=== PATIENT | male | born 1955 | race Caucasian/White ===

== ENCOUNTER 2018-03-03 16:00 | Outpatient (RCR) | payer BC, SELFPAY | END 2018-03-03 17:10 | disposition home or self-care (01) | LOC: PT 16:00 | PROVIDERS: Visit Provider Orthopaedic Surgery | DX: Z96.652 Presence of left artificial knee joint (principal); M17.12 Unilateral primary osteoarthritis, left knee | CPT/HCPCS: 97110; 97112 ==

== ENCOUNTER 2023-02-11 16:28 | Inpatient (IN) | payer MEDICARE, SELFPAY ==
[2023-02-11] VITALS (7 sets, daily range): BP systolic 122–168; BP diastolic 68–113; PULSE 71–95; RESP 16–20; TEMP 36.4–36.8; O2SAT 92–97; BMI 29.6; BMI 28.9
--- NOTE | 2023-02-11 16:38 | CT_ITS ---
PROCEDURE INFORMATION: Exam: CT Abdomen And Pelvis With Contrast Exam date and time: 02/11/2023 5:30 PM Age: 67 years old Clinical indication: Abdominal pain; Generalized TECHNIQUE: Imaging protocol: Computed tomography of the abdomen and pelvis with contrast. Radiation optimization: All CT scans at this facility use at least one of these dose optimization techniques: automated exposure control; mA and/or kV adjustment per patient size (includes targeted exams where dose is matched to clinical indication); or iterative reconstruction. Contrast material: ISOVUE; Contrast volume: 75 ml; Contrast route: IV; REPORTING DATA: Count of CT and Cardiac NM exams in prior 12 months: This patient has received 0 known CTs and 0 known cardiac nuclear medicine studies in the 12 months prior to the current study. COMPARISON: No relevant prior studies available. FINDINGS: Heart: Aortic valve calcifications. Coronary arteries: Coronary artery calcifications. Liver: Low attenuation hepatic lesions measuring up to 7 mm in diameter are incompletely characterized, but are likely cysts. No followup imaging is recommended. Gallbladder and bile ducts: Normal. No calcified stones. No ductal dilation. Pancreas: Normal. No ductal dilation. Spleen: Normal. No splenomegaly. Adrenal glands: Normal. No mass. Kidneys and ureters: Low attenuation renal lesions measuring up to 11 mm in diameter are incompletely characterized, but are likely cysts. No followup imaging is warranted. Stomach and bowel: There are fluid-filled and dilated segments of small bowel in the abdomen and pelvis with surrounding edema and mesenteric free fluid. There is a transition point seen near midline on image 31 series 1001. The mesentery partially twists around this location. Small amount of free fluid in the pelvis likely related to bowel pathology. Severe sigmoid diverticulosis. Appendix: No evidence of appendicitis. Intraperitoneal space: Small amount of free fluid in the pelvis. Vasculature: The arteries demonstrate mild atherosclerotic disease. Lymph nodes: Unremarkable. No enlarged lymph nodes. Urinary bladder: Nonspecific urinary bladder wall thickening with mild surrounding edema. Reproductive: Moderate prostate enlargement. Bones/joints: Chronic pars defects of L5. No acute fracture. Soft tissues: Small fat containing right inguinal hernia. Other findings: Stigmata of old granulomatous disease. IMPRESSION: 1. There are fluid-filled and dilated segments of small bowel in the abdomen and pelvis with surrounding edema and mesenteric free fluid. There is a transition point seen near midline on image 31 series 1001. The mesentery partially twists around this location. This is most likely a high-grade bowel obstruction, possibly related to volvulus. Adhesions are also possible. Surgical evaluation is recommended. 2. Severe sigmoid diverticulosis. Free fluid surrounding the sigmoid colon limits the ability to exclude acute diverticulitis. 3. Nonspecific urinary bladder wall thickening with mild surrounding edema. Please exclude infection. 4. THIS REPORT CONTAINS FINDINGS THAT MAY BE CRITICAL TO PATIENT CARE. The findings were verbally communicated via telephone conference with ANTHONY SEBASTIAN at 7:39 PM EDT on 02/11/2023. The findings were acknowledged and understood. COMMENTS: Consistent with the [employer]'s Incidental Findings Committee white paper (J Am Haydee Radiol 2018): Any incidental renal lesion less than 1 cm or classified as too small to characterize, or any incidental cystic renal lesion characterized as simple-appearing, is likely benign. N
[2023-02-11 16:58] LABS: Microscopic, Urine URINE MICROSCOPIC (MICROSCOPIC)
[2023-02-11 17:05] LABS: Basophils % 0.3 % (0.1-2.0); Eosinophils % 0.4 % (0.1-12.0); Hematocrit 49.6 % (42.0-52.0); Hemoglobin 16.5 g/dL (14.1-18.0); Lymphocytes # 0.5 K/mm3 (0.7-4.5); Lymphocytes % 5.5 % (10-50); Mean Corpuscular HGB Conc 33.2 g/dL (31.8-35.4); Mean Corpuscular Hemoglobin 29.1 pg (27.0-31.2); Mean Corpuscular Volume 87.5 fl (80-94); Mean Platelet Volume 7.1 fl (7.4-10.4); Monocytes # 0.4 K/mm3 (0.1-1.0); Monocytes % 4.7 % (1.7-9.3); Neutrophils # 7.4 K/mm3 (1.8-7.8); Neutrophils % 89.2 % (37.0-80.0); Platelet Count 280 K/mm3 (142-424); Red Blood Count 5.67 M/mm3 (4.60-6.20); White Blood Count 8.3 K/mm3 (4.8-10.8)
[2023-02-11 17:14] LABS: MANUAL DIFFERENTIAL MANUAL DIFFERENTIAL (MANUAL DIFF)
[2023-02-11 17:16] LABS: Chloride 99 mmol/L (98-107); Potassium 3.8 mmoL/L (3.5-5.1); Sodium 135 mmol/L (136-145)
[2023-02-11 17:18] LABS: Alanine Aminotransferase 44 U/L (12-78); Alkaline Phosphatase 74 U/L (38-126); Aspartate Amino Transferase 40 U/L (17-59); Bilirubin,Total 0.7 mg/dl (0.2-1.3); Blood Urea Nitrogen 15 mg/dl (9-20); Creatinine Clearance Estimated 87 mL/min (50-200); Estimated Glomerular Filt Rate 84 ml/min (>60); GFR (African American) 101 ML/MIN (>60)
[2023-02-11 17:19] LABS: Albumin Level 5.1 g/dl (3.5-5.0); Albumin/Globulin Ratio 1.7 (1.1-1.8); Anion Gap 14.8 mEq/L (5-15); Calcium 9.5 mg/dl (8.4-10.2); Carbon Dioxide 25 mmol/L (22.0-30.0); Glucose 141 mg/dl (74-100); Lipase 48 U/L (23-300); Total Protein,Serum 8.1 g/dl (6.3-8.2)
[2023-02-11 17:20] LABS: Appearance,Urine CLEAR (Clear); Bilirubin,Urine Negative (Negative); Blood, Urine TRACE-I (Negative); Color,Urine YELLOW (Yellow); Glucose,Urine (UA) Negative (Negative); Ketones,Urine Negative (Negative); Leukocyte Esterase,Urine Negative (Negative); Nitrate,Urine Negative (Negative); Protein,Urine 2+ (Negative); Specific Gravity, Urine >= 1.030 (1.005-1.030); Urobilinogen,Urine 0.2 EU/dl (0.2)
[2023-02-11 17:32] LABS: Lymphocytes % 11 % (10-50); Monocytes % 5 % (2-9); Neutrophils % 84 % (42-76); Platelet Estimate Normal; RBC Morphology Normal; Total Cells Counted 100
[2023-02-11 17:35] LABS: RBC,Urine Occasional #/hpf (0-3); Squamous Epithelial Cell,Urine Occasional #/hpf (0-5); WBC,Urine Occasional #/hpf (0-3)
--- NOTE | 2023-02-11 17:36 | PC.NURSE ---
pt arrived back to room from ct
--- NOTE | 2023-02-11 17:38 | PC.NURSE ---
pt returned from radiology.
--- NOTE | 2023-02-11 17:38 | HMH.EDGENADL ---
Discharge Plan Disposition Chief Complaint: Abdominal Pain Prescriptions Prescriptions: No Action lisinopril-hydrochlorothiazide 20-12.5 mg Tablet 1 tab PO DAILY pravastatin 20 mg Tablet 20 mg PO DAILY Referrals Follow up/Referrals: Eleazar Templeton MD [Primary Care Provider] - See instructions Clinical Impressions Clinical Impression: Bowel obstruction Instructions Patient Instructions: DI for Acute Abdominal Pain Discharge ED Provider: Stephane Browning General Adult HPI General Chief complaint: Abdominal Pain Stated complaint: Stomach and abdominal pain Time Seen by Provider: 02/11/23 16:30 Mode of Arrival: Ambulatory Source of Information: Patient Limitations: No Limitations Description of Symptoms (Recalled from ER Triage Doc. by RN): Patient arrived POV to ED. Patient is having complaints of lower abdominal cramping that started this morning. He has been throwig up all day but states he has not had any diarrhea. His last BM was yesterday. States he is not having any difficulty or pain urinating. Patient states he is feeling bloated and has not been able to keep anything down. History of Present Illness HPI narrative: 67-year-old male presents with lower abdominal pain for 1 day. He says his bilateral lower abdomen nonradiating dull in nature. It is intermittent and coming and going. No flank pain no dysuria no hematuria. No nausea vomiting or diarrhea. No fever. He has not had pain like this before no history of abdominal surgeries. Related Data Home Medications Medication Instructions Recorded Confirmed lisinopril 20 1 tab PO DAILY Hypertension 02/11/23 02/11/23 mg-hydrochlorothiazide 12.5 mg tablet pravastatin 20 mg tablet 20 mg PO DAILY Cholesterol 02/11/23 02/11/23 Allergies Allergy/AdvReac Type Severity Reaction Status Date / Time No Known Allergies Allergy Verified 02/11/23 17:07 [facility] Disclaimer: The information contained in this section may have been updated after the patient was seen, as this information can be updated by other users. Social History Smoking Status: Never smoker alcohol intake: former current occupational status: other Travel in the last 8 weeks: Inside the [place] ROS Obtained: Yes All systems reviewed & no additional complaints except as documented Constitutional Constitutional: Denies fatigue Eyes Eyes: Denies dry eyes ENT Ears, Nose, Mouth, and Throat: Denies dizziness Cardiovascular Cardiovascular: Denies diaphoresis and Denies dyspnea Respiratory Respiratory: Denies dyspnea and Denies wheezing Gastrointestinal Gastrointestingal: Denies nausea Genitourinary Male Genitourinary: Denies flank pain Musculoskeletal Musculoskeletal: Denies joint swelling Integumentary/Breasts Skin/Breast: Denies rash Neurologic Neurologic: Denies dizziness Endocrine Endocrine: Denies fatigue Allergic/Immunologic Allergic/Immunologic: Denies urticaria and Denies wheezing Physical Exam General General appearance: alert and in no apparent distress Eye Eye exam: Present PERRL and EOMI ENT ENT exam: Present normal exam and normal oropharynx Neck Neck exam: Present normal inspection Chest Chest inspection: Present symmetric chest wall rise Respiratory Respiratory exam: Present normal lung sounds bilaterally; Absent respiratory distress Cardiovascular Cardiovascular exam: Present regular rate and normal rhythm Abdominal Exam Abdominal exam: Present soft and tenderness (Tenderness in bilateral lower abdomen); Absent distention, guarding, rebound, Gonzalez's sign or tenderness at McBurney's Point Rectal Exam Rectal exam: Present deferred Back Exam Back exam: Present normal inspection Neurological Exam Neurological exam: Present alert and oriented X3 Psychiatric Psychiatric exam: Present normal affect and normal mood Skin Skin exam: Present warm, dry and intact Lymphatic Lymphatic Findings: no adenopathy Medical Decision Making
--- NOTE | 2023-02-11 19:15 | PC.NURSE ---
Gave report to Shannon ARTEAGA
--- NOTE | 2023-02-11 19:39 | PC.NURSE ---
Dr. Altamirano [email or web address]
--- NOTE | 2023-02-11 20:02 | PC.NURSE ---
Pt assigned to room 200. Admissions notified at this time.
--- NOTE | 2023-02-11 20:06 | PC.NURSE ---
Hospitalist, Avis at [facility]
[2023-02-11 20:10] LABS: Coronavirus 19, PCR Not Detected (NotDetected); Influenza A, PCR Not Detected (NotDetected); Influenza B, PCR Not Detected (NotDetected)
--- NOTE | 2023-02-11 20:18 | EXP.HP ---
History of Present Illness *Admission Date: 02/11/23 *Reason for visit:: Abdominal Pain *History of present illness: This is a 67-year-old male with past medical history of hypertension and hyperlipidemia who presents emergency department today with complaints of Lower abdominal pain. He reports drinking his normal coffee this morning with no issues but then developed severe lower abdominal pain, crampy in nature. He reports trying to eat toast and developed nausea with 1 episode of emesis. He denies any further emesis since then but has had continued pain. He does endorse normal bowel movement yesterday but is seemingly constipated today. He denies fever, bright red blood per rectum, hematemesis, melena. Emergency department work-up significant for high-grade small bowel obstruction with mesenteric edema. No evidence of abscess noted. Laboratory evaluation unremarkable. Dr. Altamirano with surgery was consulted at time of admission and recommends n.p.o. with maintenance IV fluids bowel rest. He is admitted to the hospital service for further evaluation management [facility] Disclaimer: The information contained in this section may have been updated after the patient was seen, as this information can be updated by other users. Surgical History History of knee replacement Family History (Updated 02/11/23 @ 21:29 by Avis Soto RN) Family history of Alzheimer's disease Social History (Updated 02/11/23 @ 21:29 by Avis Soto RN) Smoking Status: Never smoker alcohol intake: former current occupational status: other Travel in the last 8 weeks: Inside the [place] Review of Systems Review of Systems Review of systems:: pertinent systems reviewed and negative unless documented below ENT Ears, Nose, Mouth, and Throat: Denies dizziness and Reports sinus pressure *Gastrointestinal Gastrointestinal: Reports change in stool character, Reports constipation and Reports nausea *Neurologic Neurologic: Denies dizziness Meds Home Medications and Allergies Home Medications Medication Instructions Recorded Confirmed Type lisinopril 20 1 tab PO DAILY Hypertension 02/11/23 02/12/23 History mg-hydrochlorothiazide 12.5 mg tablet pravastatin 20 mg tablet 20 mg PO DAILY Cholesterol 02/11/23 02/12/23 History New Prescriptions to Start Prescriptions: Allergies Allergy/AdvReac Type Severity Reaction Status Date / Time No Known Allergies Allergy Verified 02/11/23 17:07 Exam Data for Last 24 hours Vital signs and Labs for Last 24 Hours: Temp Pulse Resp BP Pulse Ox 98.0 F 92 H 20 139/95 H 95 02/11/23 16:29 02/11/23 18:30 02/11/23 16:29 02/11/23 18:30 02/11/23 18:30 Laboratory Results - last 24 hr 02/11/23 16:33: Urine Color Yellow, Urine Appearance Clear, Urine pH 6.0, Ur Specific [place] >= 1.030, Urine Protein 2+, Urine Glucose (UA) Negative, Urine Ketones Negative, Urine Blood Trace-i, Urine Nitrate Negative, Urine Bilirubin Negative, Urine Urobilinogen 0.2, Ur Leukocyte Esterase Negative, Urine RBC Occasional, Urine WBC Occasional, Ur Squamous Epith Cells Occasional, Urine Bacteria None 02/11/23 16:49: WBC 8.3, RBC 5.67, Hgb 16.5, Hct 49.6, MCV 87.5, MCH 29.1, MCHC 33.2, RDW 14.0, Plt Count 280, MPV 7.1 L, Neut % (Auto) 89.2 H, Lymph % (Auto) 5.5 L, [place] % (Auto) 4.7, Eos % (Auto) 0.4, Baso % (Auto) 0.3, Neut # (Auto) 7.4, Lymph # (Auto) 0.5 L, [place] # (Auto) 0.4, Eos # (Auto) 0.0, Baso # (Auto) 0.0, Total Counted 100, Neutrophils % (Manual) 84 H, Lymphocytes % (Manual) 11, Monocytes % (Manual) 5, Platelet Estimate Normal, RBC Morphology Normal 02/11/23 16:49: Sodium 135 L, Potassium 3.8, Chloride 99, Carbon Dioxide 25, Anion Gap 14.8, BUN 15, Creatinine 0.90, Estimated Creat Clear 87, Estimated GFR 84, Est GFR ( Amer) 101, Glucose 141 H, Calcium 9.5, Total Bilirubin 0.7, AST 40, ALT 44, Alkaline Phosphatase 74, Total Protein 8.
--- NOTE | 2023-02-11 20:18 | PC.NURSE ---
Attempted report. Floor nurse to call me back
--- NOTE | 2023-02-11 20:29 | PC.NURSE ---
Report to JENNI Albarran
[2023-02-12 04:00] VITALS: BP 155/84; PULSE 86; RESP 16; TEMP 36.9; O2SAT 96; BMI 28.8
--- NOTE | 2023-02-12 04:03 | PC.NURSE ---
NO ACUTE CHANGES SINCE PATIENT ARRIVED TO THE FLOOR. PT HAS RESTED INTERMITTENTLY. HAS C/O OF ABD PAIN X1 NAUSEA X2 AND HEARTBURN X1. VSS. LUNG SOUNDS CLEAR REMAINS ON ROOM AIR.
--- NOTE | 2023-02-12 06:10 | EXP.SURG.CON ---
History of Present Illness *Admission Date: 02/11/23 *Reason for visit:: Bowel obstruction *History of present illness: Patient is a 67-year-old male from [place], [place]. He has a prior history of hypertension hyperlipidemia. No history of any previous abdominal surgeries. He presented to the emergency department with complaints of lower abdominal pain. This was described as severe in intensity. Dull and crampy in nature. He had onset after eating breakfast. Initially he was having some upper respiratory congestion and had taken some DayQuil. He then developed at this abdominal pain. He did have associated emesis and had diminished appetite. Bowel movement was normal on 02/10/2023 and he had small hard stool bowel movement on 02/11/2023. No prior similar history. Evaluation in the emergency department included CT scan which revealed findings of fluid-filled dilated segments of small bowel in the abdomen and pelvis with some edema. There was noted to be a transition point. Radiologist description describes mesentery partially twists around this location. This is most likely a high-grade bowel obstruction, possibly related to volvulus. Adhesions are also possible. There is also findings of severe sigmoid diverticulosis. Surgery was contacted. Arrangements were made for inpatient admission to hospitalist service with surgical consultation. [facility] Disclaimer: The information contained in this section may have been updated after the patient was seen, as this information can be updated by other users. Surgical History History of knee replacement Family History (Updated 02/11/23 @ 21:29 by Avis Soto RN) Family history of Alzheimer's disease Social History (Updated 02/11/23 @ 21:29 by Avis Soto RN) Smoking Status: Never smoker alcohol intake: former current occupational status: other Travel in the last 8 weeks: Inside the [place] Review of Systems ENT Ears, Nose, Mouth, and Throat: Denies dizziness *Neurologic Neurologic: Denies dizziness Meds Home Medications and Allergies Home Medications Medication Instructions Recorded Confirmed Type lisinopril 20 1 tab PO DAILY Hypertension 02/11/23 02/11/23 History mg-hydrochlorothiazide 12.5 mg tablet pravastatin 20 mg tablet 20 mg PO DAILY Cholesterol 02/11/23 02/11/23 History New Prescriptions to Start Prescriptions: Allergies Allergy/AdvReac Type Severity Reaction Status Date / Time No Known Allergies Allergy Verified 02/11/23 17:07 Exam (Inpt) Vital signs and Labs for Last 24 Hours: Temp Pulse Resp BP Pulse Ox 98.5 F 86 16 155/84 H 96 02/12/23 04:00 02/12/23 04:00 02/12/23 04:00 02/12/23 04:00 02/12/23 04:00 Laboratory Results - last 24 hr 02/11/23 16:33: Urine Color Yellow, Urine Appearance Clear, Urine pH 6.0, Ur Specific [place] >= 1.030, Urine Protein 2+, Urine Glucose (UA) Negative, Urine Ketones Negative, Urine Blood Trace-i, Urine Nitrate Negative, Urine Bilirubin Negative, Urine Urobilinogen 0.2, Ur Leukocyte Esterase Negative, Urine RBC Occasional, Urine WBC Occasional, Ur Squamous Epith Cells Occasional, Urine Bacteria None 02/11/23 16:49: WBC 8.3, RBC 5.67, Hgb 16.5, Hct 49.6, MCV 87.5, MCH 29.1, MCHC 33.2, RDW 14.0, Plt Count 280, MPV 7.1 L, Neut % (Auto) 89.2 H, Lymph % (Auto) 5.5 L, [place] % (Auto) 4.7, Eos % (Auto) 0.4, Baso % (Auto) 0.3, Neut # (Auto) 7.4, Lymph # (Auto) 0.5 L, [place] # (Auto) 0.4, Eos # (Auto) 0.0, Baso # (Auto) 0.0, Total Counted 100, Neutrophils % (Manual) 84 H, Lymphocytes % (Manual) 11, Monocytes % (Manual) 5, Platelet Estimate Normal, RBC Morphology Normal 02/11/23 16:49: Sodium 135 L, Potassium 3.8, Chloride 99, Carbon Dioxide 25, Anion Gap 14.8, BUN 15, Creatinine 0.90, Estimated Creat Clear 87, Estimated GFR 84, Est GFR ( Amer) 101, Glucose 141 H, Calcium 9.5, Total Bilirubin 0.7, AST 40, ALT 44, Alkaline Phosph
[2023-02-12 07:13] VITALS: BP 124/74; PULSE 83; RESP 18; TEMP 36.9; O2SAT 100
[2023-02-12 07:13] LABS: Basophils % 0.4 % (0.1-2.0); Eosinophils % 0.1 % (0.1-12.0); Hematocrit 48.5 % (42.0-52.0); Hemoglobin 15.4 g/dL (14.1-18.0); Lymphocytes # 1.1 K/mm3 (0.7-4.5); Lymphocytes % 13.9 % (10-50); Mean Corpuscular HGB Conc 31.8 g/dL (31.8-35.4); Mean Corpuscular Hemoglobin 28.9 pg (27.0-31.2); Mean Corpuscular Volume 90.8 fl (80-94); Mean Platelet Volume 7.2 fl (7.4-10.4); Monocytes # 0.6 K/mm3 (0.1-1.0); Monocytes % 7.3 % (1.7-9.3); Neutrophils % 78.3 % (37.0-80.0); Platelet Count 264 K/mm3 (142-424); Red Blood Count 5.34 M/mm3 (4.60-6.20); White Blood Count 7.7 K/mm3 (4.8-10.8)
--- NOTE | 2023-02-12 07:19 | HMH.PHAINT1 ---
Pharmacy Intervention Comments: Reconciled patient's medication history using pharmacy fill records and patient interview.
[2023-02-12 07:27] LABS: Anion Gap 12.8 mEq/L (5-15); Blood Urea Nitrogen 15 mg/dl (9-20); Calcium 8.2 mg/dl (8.4-10.2); Carbon Dioxide 24 mmol/L (22.0-30.0); Chloride 100 mmol/L (98-107); Creatinine Clearance Estimated 85 mL/min (50-200); Estimated Glomerular Filt Rate 96 ml/min (>60); GFR (African American) 116 ML/MIN (>60); Glucose 119 mg/dl (74-100); Magnesium 2.2 mg/dl (1.6-2.3); Phosphorous 3.2 mg/dl (2.5-4.5); Potassium 3.8 mmoL/L (3.5-5.1); Sodium 133 mmol/L (136-145)
--- NOTE | 2023-02-12 07:56 | XR_ITS ---
FINAL REPORT CLINICAL HISTORY: ABDOMINAL PAIN, BOWEL OBSTRUCTION COMPARISON: 02/11/2023 FINDINGS: A PA view of the chest was obtained. The cardiac and mediastinal silhouettes are within normal limits. The lungs are clear. There is no free air beneath the diaphragm. Upright and supine views of the abdomen were obtained. NG tube tip is in the stomach. There are dilated small bowel loops, predominantly in the upper abdomen dilated up to 4.5 cm. Air-fluid levels are identified. The degree of dilatation in the small bowel loops is similar to prior. Contrast is seen in the urinary bladder. There are no pathologic calcifications. No acute osseous abnormalities identified. IMPRESSION: No acute intrathoracic or intraabdominal abnormality. No free air. Dilated small bowel loops consistent with known small bowel obstruction. Reviewed, Interpreted and Dictated by Diana Hope MD Transcribed by Nisa Mishra Authenticated and [facility] [place]
[2023-02-12 10:47] VITALS: BP 120/83; PULSE 87; RESP 17; TEMP 36.5; O2SAT 95
[2023-02-12 12:42] VITALS: BMI 28.8
--- NOTE | 2023-02-12 14:07 | EXP.ACUTE.PN ---
Subjective *Date: 02/12/23 *Time: 14:07 Interval history: No further nausea or vomiting overnight. NG placed this morning. Tolerating well with approximately 600 cc of output. Denies chest pain, confusion, shortness of breath. No bowel movements or flatus. Stable on room air. Medical Exam Vital signs and Labs for Last 24 Hours: Vital Signs Temp Pulse Pulse Resp BP BP Pulse Ox 02/12/23 10:47 97.7 F 87 17 120/83 95 02/12/23 07:13 98.5 F 83 18 124/74 100 02/12/23 04:00 98.5 F 86 16 155/84 H 96 02/11/23 20:16 97.6 F 93 H 20 142/98 H 96 02/11/23 20:30 98.3 F 71 16 122/68 02/11/23 18:30 92 H 139/95 H 95 02/11/23 18:00 90 148/98 H 92 L 02/11/23 17:40 86 168/113 H 93 L 02/11/23 17:00 91 H 152/101 H 95 02/11/23 16:29 98.0 F 95 H 20 153/100 H 95 Intake and Output 02/11/23 02/12/23 02/12/23 23:59 07:59 15:59 Intake Total 1000 / 1000 0 / 0 Output Total 0 / 0 0 / 0 Balance 1000 / 1000 0 / 0 0 / 0 Intake: Intake, Oral Amount 0 / 0 Intake, Total IV Amount 1000 / 1000 Output: Output, Urine Amount 0 / 0 0 / 0 Other: Number of Unmeasured Voids 1 1 Weight 86.591 kg 86.228 kg 86.2 kg Patient Weight 02/12/23 23:59 Weight 86.2 kg Laboratory Results - last 24 hr 02/11/23 16:33: Urine Color Yellow, Urine Appearance Clear, Urine pH 6.0, Ur Specific [place] >= 1.030, Urine Protein 2+, Urine Glucose (UA) Negative, Urine Ketones Negative, Urine Blood Trace-i, Urine Nitrate Negative, Urine Bilirubin Negative, Urine Urobilinogen 0.2, Ur Leukocyte Esterase Negative, Urine RBC Occasional, Urine WBC Occasional, Ur Squamous Epith Cells Occasional, Urine Bacteria None 02/11/23 16:49: WBC 8.3, RBC 5.67, Hgb 16.5, Hct 49.6, MCV 87.5, MCH 29.1, MCHC 33.2, RDW 14.0, Plt Count 280, MPV 7.1 L, Neut % (Auto) 89.2 H, Lymph % (Auto) 5.5 L, [place] % (Auto) 4.7, Eos % (Auto) 0.4, Baso % (Auto) 0.3, Neut # (Auto) 7.4, Lymph # (Auto) 0.5 L, [place] # (Auto) 0.4, Eos # (Auto) 0.0, Baso # (Auto) 0.0, Total Counted 100, Neutrophils % (Manual) 84 H, Lymphocytes % (Manual) 11, Monocytes % (Manual) 5, Platelet Estimate Normal, RBC Morphology Normal 02/11/23 16:49: Sodium 135 L, Potassium 3.8, Chloride 99, Carbon Dioxide 25, Anion Gap 14.8, BUN 15, Creatinine 0.90, Estimated Creat Clear 87, Estimated GFR 84, Est GFR ( Amer) 101, Glucose 141 H, Calcium 9.5, Total Bilirubin 0.7, AST 40, ALT 44, Alkaline Phosphatase 74, Total Protein 8.1, Albumin 5.1 H, Globulin 3.0, Albumin/Globulin Ratio 1.7, Lipase 48 02/11/23 20:03: SARS-CoV-2 (PCR) Not detected, Influenza A Untype (PCR) Not detected, Influenza Type B (PCR) Not detected 02/12/23 06:55: WBC 7.7, RBC 5.34, Hgb 15.4, Hct 48.5, MCV 90.8, MCH 28.9, MCHC 31.8, RDW 14.0, Plt Count 264, MPV 7.2 L, Neut % (Auto) 78.3, Lymph % (Auto) 13.9, [place] % (Auto) 7.3, Eos % (Auto) 0.1, Baso % (Auto) 0.4, Neut # (Auto) 6.0, Lymph # (Auto) 1.1, [place] # (Auto) 0.6, Eos # (Auto) 0.0, Baso # (Auto) 0.0 02/12/23 06:55: Sodium 133 L, Potassium 3.8, Chloride 100, Carbon Dioxide 24, Anion Gap 12.8, BUN 15, Creatinine 0.80, Estimated Creat Clear 85, Estimated GFR 96, Est GFR ( Amer) 116, Glucose 119 H, Calcium 8.2 L, Phosphorus 3.2, Magnesium 2.2 I & O for Labs for Last 24 Hours: Intake & Output 02/09/23 02/10/23 02/11/23 02/12/23 23:59 23:59 23:59 23:59 Intake Total 1000 / 1000 0 / 0 Output Total 0 / 0 Balance 1000 / 1000 0 / 0 Weight 86.591 kg 86.2 kg Constitutional: Present no acute distress Head: Present atraumatic and normocephalic ENT: Present normal exam Comment:: NG in right nare Neck: Present normal inspection Respiratory: Present normal respiratory effort; Absent accessory muscle use, rhonchi, wheezes or crackles Cardiac: Present Reg Rate and Rhythm GI: Present soft, tenderness (worse in left abdomen, hypoactive bowel sounds) and normal bowel sounds; Absent distention Extremities: Present normal inspection and full R
[2023-02-12 14:51] VITALS: BP 129/76; PULSE 86; RESP 18; TEMP 37.3; O2SAT 94
--- NOTE | 2023-02-12 16:55 | PC.NURSE ---
Pt is resting in bed. NG 16 fr to (R) nare @ 67 cm continuous low wall suction. Has had 600 ml of brown bile. Pt has c/o abd discomfort and nausea this shift. Medicated per jan. Pt voids per urinal. VSS at this time. Call light within reach.
[2023-02-12 20:00] VITALS: BP 133/91; PULSE 90; RESP 16; TEMP 36.9; O2SAT 93
[2023-02-13] VITALS (21 sets, daily range): BP systolic 119–151; BP diastolic 66–94; PULSE 87–125; RESP 16–20; TEMP 36.3–43; O2SAT 90–96; BMI 28.6
--- NOTE | 2023-02-13 00:44 | XR_ITS ---
PROCEDURE INFORMATION: Exam: XR Abdomen Exam date and time: 02/13/2023 2:18 AM Age: 67 years old Clinical indication: Abdominal pain TECHNIQUE: Imaging protocol: Radiologic exam of the abdomen. Views: Frontal supine view of the abdomen. 1 View. COMPARISON: CR XR ACUTE ABDOMEN SERIES 02/12/2023 8:40 AM FINDINGS: Gastrointestinal tract: Normal. No bowel dilation. Bones/joints: Unremarkable. IMPRESSION: No acute findings.
--- NOTE | 2023-02-13 03:38 | XR_ITS ---
PROCEDURE INFORMATION: Exam: XR Abdomen Exam date and time: 02/13/2023 3:52 AM Age: 67 years old Clinical indication: Device placement; Gi device; Nasogastric tube; Additional info: Ngt placement TECHNIQUE: Imaging protocol: Radiologic exam of the abdomen. Views: Frontal supine view of the abdomen. 1 View. COMPARISON: CR XR KUB 02/13/2023 2:18 AM FINDINGS: Tubes, catheters and devices: Nasogastric tube overlies the stomach. Gastrointestinal tract: Normal. No bowel dilation. Bones/joints: Unremarkable. IMPRESSION: NG tube in stomach.
--- NOTE | 2023-02-13 05:39 | EXP.EVENT.NO ---
0218 JENNI Cook reported patient abdomen distended, complained of significant abdominal pain, NGT with no output. NGT replaced and KUB ordered for confirmation, NGT with improved output, patient pain improved.
--- NOTE | 2023-02-13 06:00 | FL_ITS ---
FINAL REPORT CLINICAL HISTORY: bowel obstruction FINDINGS: SMALL BOWEL FOLLOW THROUGH HISTORY: Acute abdominal pain. Abnormal CT scan with bowel obstruction. PROCEDURE: Gastrografin contrast was gently injected to the patient's existing nasogastric tube. Serial radiographs were obtained. FINDINGS: Preliminary beverage distiller film demonstrates nasogastric tube to terminate in the stomach. On the two-hour radiograph, there is contrast identified in dilated loops of small bowel but no contrast in the colon. At this time, the examination was terminated as the patient was taken to the operating room. IMPRESSION: Dilated loops of small bowel most consistent with high-grade bowel obstruction. Films reviewed , interpreted and dictated by Dr. Diana Hope. Transcribed by Raj Oh PA-C. Reviewed, Interpreted and Dictated by Diana Hope MD Transcribed by TERE Hutchinson Authenticated and [facility]
--- NOTE | 2023-02-13 07:08 | EXP.SURG.PN ---
Subjective Narrative: Patient had significant acute exasperation of pain earlier this morning requiring morphine. He did pass some gas but no bowel movement. Exam Data for Last 24 hours Vital signs and Labs for Last 24 Hours: Temp Pulse Resp BP Pulse Ox 98.5 F 96 H 20 142/66 H 94 L 02/13/23 04:00 02/13/23 04:00 02/13/23 04:00 02/13/23 04:00 02/13/23 04:00 Laboratory Results - last 24 hr 02/12/23 06:55: WBC 7.7, RBC 5.34, Hgb 15.4, Hct 48.5, MCV 90.8, MCH 28.9, MCHC 31.8, RDW 14.0, Plt Count 264, MPV 7.2 L, Neut % (Auto) 78.3, Lymph % (Auto) 13.9, [place] % (Auto) 7.3, Eos % (Auto) 0.1, Baso % (Auto) 0.4, Neut # (Auto) 6.0, Lymph # (Auto) 1.1, [place] # (Auto) 0.6, Eos # (Auto) 0.0, Baso # (Auto) 0.0 02/12/23 06:55: Sodium 133 L, Potassium 3.8, Chloride 100, Carbon Dioxide 24, Anion Gap 12.8, BUN 15, Creatinine 0.80, Estimated Creat Clear 85, Estimated GFR 96, Est GFR ( Amer) 116, Glucose 119 H, Calcium 8.2 L, Phosphorus 3.2, Magnesium 2.2 I & O for Last 24 hours: Intake & Output 02/10/23 02/11/23 02/12/23 02/13/23 11:59 11:59 11:59 11:59 Intake Total 1000 / 1000 1755 / 1755 Output Total 0 / 0 1011 / 1011 Balance 1000 / 1000 744 / 744 Weight 190 lb 1.6 oz 189 lb 3.2 oz *Routine Abdominal Exam Comments: Slightly distended. Progress Note: A&P Assessment and plan (1) Bowel obstruction: Status: Acute Assessment and plan: I will review his x-rays. Patient may very well require laparotomy. (2) Hypertension: Status: Acute (3) Hyperlipidemia: Status: Acute
--- NOTE | 2023-02-13 07:14 | PC.NURSE ---
Pt started c/o nausea and pain in middle of night stating it was the worse pain he had had. Very small amount of drainage noted in canister. Tube was pulled and new tube inserted. KUB showed it was in stomach. Small amount of clear fluid noted when hooked to suction. Pt has not voiced any c/o since reinserting tube.
[2023-02-13 07:32] LABS: Basophils % 0.4 % (0.1-2.0); Eosinophils % 0.1 % (0.1-12.0); Hematocrit 48.4 % (42.0-52.0); Hemoglobin 15.4 g/dL (14.1-18.0); Lymphocytes # 1.1 K/mm3 (0.7-4.5); Lymphocytes % 16.7 % (10-50); Mean Corpuscular HGB Conc 31.9 g/dL (31.8-35.4); Mean Corpuscular Volume 90.8 fl (80-94); Mean Platelet Volume 7.3 fl (7.4-10.4); Monocytes # 0.5 K/mm3 (0.1-1.0); Monocytes % 7.4 % (1.7-9.3); Neutrophils # 4.7 K/mm3 (1.8-7.8); Neutrophils % 75.3 % (37.0-80.0); Platelet Count 263 K/mm3 (142-424); Red Blood Count 5.33 M/mm3 (4.60-6.20); Red Cell Distribution Width 13.8 % (11.5-17.5); White Blood Count 6.3 K/mm3 (4.8-10.8)
[2023-02-13 07:42] LABS: Alanine Aminotransferase 26 U/L (12-78); Albumin/Globulin Ratio 1.7 (1.1-1.8); Alkaline Phosphatase 57 U/L (38-126); Anion Gap 11.6 mEq/L (5-15); Aspartate Amino Transferase 28 U/L (17-59); Bilirubin,Total 0.6 mg/dl (0.2-1.3); Blood Urea Nitrogen 17 mg/dl (9-20); Calcium 7.9 mg/dl (8.4-10.2); Carbon Dioxide 25 mmol/L (22.0-30.0); Chloride 102 mmol/L (98-107); Creatinine Clearance Estimated 85 mL/min (50-200); Estimated Glomerular Filt Rate 96 ml/min (>60); GFR (African American) 116 ML/MIN (>60); Globulin 2.4 g/dL (1.3-3.2); Glucose 111 mg/dl (74-100); Magnesium 2.3 mg/dl (1.6-2.3); Potassium 3.6 mmoL/L (3.5-5.1); Sodium 135 mmol/L (136-145); Total Protein,Serum 6.4 g/dl (6.3-8.2)
--- NOTE | 2023-02-13 10:47 | EXP.SURG.PN ---
Subjective Narrative: When patient was administered contrast for small bowel follow-through he had quite severe pain with distention. Describes this pain as 10 out of 10. Exam Data for Last 24 hours Vital signs and Labs for Last 24 Hours: Temp Pulse Resp BP Pulse Ox 98.6 F 91 H 16 149/83 H 95 02/13/23 08:00 02/13/23 08:00 02/13/23 08:00 02/13/23 08:00 02/13/23 08:00 Laboratory Results - last 24 hr 02/13/23 07:08: WBC 6.3, RBC 5.33, Hgb 15.4, Hct 48.4, MCV 90.8, MCH 29.0, MCHC 31.9, RDW 13.8, Plt Count 263, MPV 7.3 L, Neut % (Auto) 75.3, Lymph % (Auto) 16.7, [place] % (Auto) 7.4, Eos % (Auto) 0.1, Baso % (Auto) 0.4, Neut # (Auto) 4.7, Lymph # (Auto) 1.1, [place] # (Auto) 0.5, Eos # (Auto) 0.0, Baso # (Auto) 0.0 02/13/23 07:08: Sodium 135 L, Potassium 3.6, Chloride 102, Carbon Dioxide 25, Anion Gap 11.6, BUN 17, Creatinine 0.80, Estimated Creat Clear 85, Estimated GFR 96, Est GFR ( Amer) 116, Glucose 111 H, Calcium 7.9 L, Magnesium 2.3, Total Bilirubin 0.6, AST 28 D, ALT 26 D, Alkaline Phosphatase 57, Total Protein 6.4, Albumin 4.0, Globulin 2.4, Albumin/Globulin Ratio 1.7 I & O for Last 24 hours: Intake & Output 02/10/23 02/11/23 02/12/23 02/13/23 11:59 11:59 11:59 11:59 Intake Total 1000 / 1000 2795 / 2795 Output Total 0 / 0 1011 / 1011 Balance 1000 / 1000 1784 / 1784 Weight 190 lb 1.6 oz 189 lb 3.2 oz *Routine Abdominal Exam Comments: Abdomen is distended and tender Progress Note: A&P Assessment and plan (1) Bowel obstruction: Status: Acute Assessment and plan: Given the fact that the patient clinically has failed small bowel follow-through with onset of severe pain and distention with administration of contrast likely has high-grade partial versus complete obstruction. Plan will be for operative intervention. (2) Hypertension: Status: Acute (3) Hyperlipidemia: Status: Acute
--- NOTE | 2023-02-13 12:01 | P.PN_ITS ---
[facility] Disclaimer: The information contained in this section may have been updated after the patient was seen, as this information can be updated by other users. Surgical History History of knee replacement Family History (Updated 02/11/23 @ 21:29 by Avis Soto RN) Other Family history of Alzheimer's disease Social History (Updated 02/11/23 @ 21:29 by Avis Soto RN) Smoking Status: Never smoker alcohol intake: former substance use type: denies use current occupational status: other Travel in the last 8 weeks: Inside the [facility] Anesthesia Checklist Patient Identification Patient Identification: Arm Band Structural Data Admitted From: Home Planned Operative Procedure/s: Exploratory Laparotomy Consent for Planned Operative Procedure(s) Verified: Yes Verified Documents: Surgical Consent and History and Physical NPO Status Verified Time NPO: 00:00 Additional verifications Anesthesia Reactions: No Airway Assessment C-Spine Mobility Assessed: Yes TMJ Mobility Assessed: Yes Dentition: Good Dentition Neurological Assessment Level of Consciousness: Awake and Alert Anesthesia Plan Anesthesia Risk discussed: Yes Anesthesia Plan: Verified ASA Class: II Anesthesia Type: General
--- NOTE | 2023-02-13 12:14 | EXP.ACUTE.PN ---
Subjective *Date: 02/13/23 *Time: 12:14 Interval history: Nausea and worsening abdominal pain on morning exam. Sitting at bedside. NG in place. Awaiting third image for small bowel follow-through. First to show contrast in the stomach and then into small intestines. Patient is afebrile. Given increased abdominal pain, discussed case with surgery, likely going to OR today. No bowel movements or gas this morning. Medical Exam Vital signs and Labs for Last 24 Hours: Vital Signs Temp Pulse Resp BP Pulse Ox 02/13/23 08:00 98.6 F 91 H 16 149/83 H 95 02/13/23 04:00 98.5 F 96 H 20 142/66 H 94 L 02/12/23 20:00 98.5 F 90 16 133/91 H 93 L 02/12/23 14:51 99.2 F 86 18 129/76 94 L Intake and Output 02/12/23 02/13/23 02/13/23 23:59 07:59 15:59 Intake Total 1755 / 1755 1040 / 1040 0 / 1040 Output Total 901 / 901 110 / 110 Balance 854 / 854 930 / 930 0 / 930 Intake: Intake, Oral Amount 0 / 0 Intake, Total IV Amount 1755 / 1755 1040 / 1040 0.9 % Sodium Chloride 1000ML 1, 1755 / 1755 1040 / 1040 000 ml @ 100 mls/hr IV .Q10H [facility] Rx#:[id number] Output: Output, Urine Amount / 110 / 110 Output, Gastric Drainage Amount 900 / 900 Right Nare 900 / 900 Other: Number of Unmeasured Voids 0 Weight 85.82 kg Patient Weight 02/13/23 23:59 Weight 85.82 kg Laboratory Results - last 24 hr 02/13/23 07:08: WBC 6.3, RBC 5.33, Hgb 15.4, Hct 48.4, MCV 90.8, MCH 29.0, MCHC 31.9, RDW 13.8, Plt Count 263, MPV 7.3 L, Neut % (Auto) 75.3, Lymph % (Auto) 16.7, [place] % (Auto) 7.4, Eos % (Auto) 0.1, Baso % (Auto) 0.4, Neut # (Auto) 4.7, Lymph # (Auto) 1.1, [place] # (Auto) 0.5, Eos # (Auto) 0.0, Baso # (Auto) 0.0 02/13/23 07:08: Sodium 135 L, Potassium 3.6, Chloride 102, Carbon Dioxide 25, Anion Gap 11.6, BUN 17, Creatinine 0.80, Estimated Creat Clear 85, Estimated GFR 96, Est GFR ( Amer) 116, Glucose 111 H, Calcium 7.9 L, Magnesium 2.3, Total Bilirubin 0.6, AST 28 D, ALT 26 D, Alkaline Phosphatase 57, Total Protein 6.4, Albumin 4.0, Globulin 2.4, Albumin/Globulin Ratio 1.7 I & O for Labs for Last 24 Hours: Intake & Output 02/10/23 02/11/23 02/12/23 02/13/23 23:59 23:59 23:59 23:59 Intake Total 1000 / 1000 1755 / 1755 1040 / 1040 Output Total 901 / 901 110 / 110 Balance 1000 / 1000 854 / 854 930 / 930 Weight 86.591 kg 86.2 kg 85.82 kg Constitutional: Present mild distress Head: Present atraumatic and normocephalic ENT: Present normal exam Comment:: NG in right nare Neck: Present normal inspection Respiratory: Present normal respiratory effort; Absent accessory muscle use, rhonchi, wheezes or crackles Cardiac: Present Reg Rate and Rhythm GI: Present soft and tenderness (Diffuse abdomen pain, absent bowel sounds); Absent distention or normal bowel sounds Extremities: Present normal inspection and full ROM Skin: Present intact; Absent erythema Neuro: Present Cranial Nerve 2-12 Intact, Grossly Intact, alert, awake, oriented x 3 and moves all extremities Assessment and Plan *Assessment and plan (1) Bowel obstruction: Status: Acute Category: Medical Code(s): K56.609 - Unspecified intestinal obstruction, unspecified as to partial versus complete obstruction (2) Hypertension: Status: Acute Category: Medical Code(s): I10 - Essential (primary) hypertension (3) Hyperlipidemia: Status: Acute Category: Medical Code(s): E78.5 - Hyperlipidemia, unspecified Plan 67-year-old male with bowel obstruction. Admitted to medicine for further management. NG placed this morning. Improved discomfort. Surgery consulted, appreciate their recommendations. Problems addressed as follows: SBO Surgery consulted, appreciate their recommendations. Discussed case with surgeon, given worsening pain, going to the OR today. Continue with NG. Further management pending findings in the OR. Continue to hold on antibiotics N
--- NOTE | 2023-02-13 13:39 | P.OP_ITS ---
Date of procedure: 02/13/23 Pre-op Diagnosis:: Small bowel obstruction Post-op Diagnosis:: Same Procedure performed:: Exploratory laparotomy with freeing of intestinal obstruction Surgeon:: Eleazar Altamirano MD GENERAL OFFICE ASSOCIATE:: Petey Galarza Anesthesia: GETA Estimated blood loss (mL): 50 Operative findings:: Patient had findings of complete distal small bowel obstruction likely secondary to twisting of the small bowel. Small bowel was completely decompressed distally and markedly distended and very tense and edematous proximally. It was somewhat hemorrhagic appearing due to its distention. However, it appeared viable. Operative note:: Patient was taken to the operating room. He was given preoperative intravenous antibiotics. In the operating room he was placed in a supine position. General anesthesia was induced via endotracheal tube. Sanderson catheter was placed. Abdomen was prepped and draped in the standard surgical fashion. Midline incision was made. Careful dissection was carried down through subcutaneous t issues and fascia. Peritoneum was carefully entered. There was a moderately large amount of reactive fluid which was suctioned free from the abdomen. Exposure was achieved. The bowel was extremely distended and tense with some hemorrhagic reaction to the serosa. Exposure was achieved by extending the incision superiorly. The small bowel was eviscerated and inspected. Distal small bowel was completely decompressed and there was noted to be marking on the serosa from complete small bowel obstruction. This was likely secondary to possible twisting of the bowel without definite adhesive band. There was no mass noted. Patient did have a moderate right inguinal hernia but this did not appear to be the etiology for the obstruction. Bowel was run in its entirety from the ileocecal valve retrograde to the ligament of Treitz. As stated above, much of the small intestine was markedly distended with some hemorrhagic reaction but viable. Nasogastric tube was palpated and positioned in a good position in the distal gastric lumen. Enteric contents were then returned to normal anatomic position. Peritoneal cavity was thoroughly irrigated with copious amounts saline and aspirated until clear. Fascia was closed with running 0 looped PDS x2. Skin was closed with geena. Clean dry sterile dressing was applied. Condition: stable Disposition: PACU Complications:: None immediately apparent
--- NOTE | 2023-02-13 13:49 | EXP.ANES.I ---
[facility] Anesthesia Record Part I Anesthesia Record I Intake, IV Amount: 1,800 Estimated blood loss (mL): 50 Urine output (mL): 150 Blood Products used (#): none Blood Pressure: 125/77 SaO2: 92 Pulse Rate: 94 Respiratory Rate: 16 Temperature: 97.7 F Patient is:: Drowsy and Stable Stable to PACU at:: 13:45
[2023-02-13 14:31] LABS: Microscopic,Cath URINE MICROSCOPIC (MICROSCOPIC)
--- NOTE | 2023-02-13 17:19 | PC.NURSE ---
Pt is alert and oriented x4. He is s/p exploratory laparotomy with freeing of intestinal obstruction. He has a midline incision covered w/telfa and tegaderm. Small amount of bloody drainage noted. His NG is to lws with approx 200mls of sanders drainage noted. He remains on RA. His mazariegos is to bedside draining straw colored urine. He has used 1ml of morphine per COMMUNICATION SPEC as of the time of this note. He is currently resting in bed with his eyes closed. Bed is locked and in the lowest position, call light is within reach.
--- NOTE | 2023-02-13 17:39 | PC.NURSE ---
All documentation and care by Bart Logan has been done under my direct supervision.
[2023-02-13 18:17] LABS: Blood Urea Nitrogen 18 mg/dl (9-20); Calcium 7.5 mg/dl (8.4-10.2); Carbon Dioxide 26 mmol/L (22.0-30.0); Creatinine Clearance Estimated 85 mL/min (50-200); Estimated Glomerular Filt Rate 84 ml/min (>60); GFR (African American) 101 ML/MIN (>60); Glucose 124 mg/dl (74-100); Potassium 3.8 mmoL/L (3.5-5.1); Sodium 138 mmol/L (136-145)
[2023-02-13 18:22] LABS: Anion Gap 11.8 mEq/L (5-15); Chloride 104 mmol/L (98-107)
[2023-02-13 20:29] LABS: Appearance,Urine/Cath CLEAR (Clear); Bilirubin,Cath Negative (Negative); Blood, Urine/Cath Negative (Negative); Color,Urine/Cath YELLOW (Yellow); Glucose,Urine/Cath (UA) Negative (Negative); Ketones,Urine/Cath 2+ (Negative); Leukocyte Esterase,Cath Negative (Negative); Nitrate,Cath Negative (Negative); PH,Urine/Cath 5.5 (5.0-8.5); Protein,Urine/Cath 2+ (Negative); Specific Gravity, Urine/Cath >= 1.030 (1.005-1.030); Urobilinogen,Cath 0.2 EU/dl (0.2)
[2023-02-13 20:42] LABS: Hyaline Casts,Urine/Cath OCC #/lpf (0); Squamous Epithelial Ur./Cath Occasional #/hpf (0-5)
[2023-02-14] VITALS (16 sets, daily range): BP systolic 115–141; BP diastolic 70–93; PULSE 87–121; RESP 17–18; TEMP 36.4–37.7; O2SAT 90–92; BMI 29.7
--- NOTE | 2023-02-14 05:02 | PC.NURSE ---
pt. A&OX4. PATIENT COORDINATOR FRONT DESK pump for pain management, used 17 mg this shift. reporting pain between 6-8. serosanguineous drainage noted on midline incisional dressing at start of shift, has not spread, pt states he has not passed any gas, bowel sounds present. Sanderson catheter in place. call light in reach.
[2023-02-14 06:54] LABS: Lymphocytes # 0.7 K/mm3 (0.7-4.5); Monocytes # 0.5 K/mm3 (0.1-1.0)
[2023-02-14 07:03] LABS: Basophils % 0.4 % (0.1-2.0); Eosinophils % 0.1 % (0.1-12.0); Hematocrit 40.8 % (42.0-52.0); Mean Corpuscular HGB Conc 32.9 g/dL (31.8-35.4); Mean Corpuscular Hemoglobin 30.2 pg (27.0-31.2); Mean Platelet Volume 7.3 fl (7.4-10.4); Neutrophils # 3.6 K/mm3 (1.8-7.8); Neutrophils % 74.4 % (37.0-80.0); Platelet Count 285 K/mm3 (142-424); Red Blood Count 4.44 M/mm3 (4.60-6.20); White Blood Count 4.8 K/mm3 (4.8-10.8)
[2023-02-14 07:04] LABS: Chloride 108 mmol/L (98-107)
[2023-02-14 07:05] LABS: Potassium 3.4 mmoL/L (3.5-5.1); Sodium 138 mmol/L (136-145)
--- NOTE | 2023-02-14 07:06 | P.PNANES_ITS ---
[facility] Anesthesia Record Part II Anesthesia Record Part II Discharge Time: 14:25 Destination: Medical Surgical Department PACU nurse assessment reviewed?: Yes Patient Condition:: Good Anesthesia Complications:: None Swallowing reflex intact?: Yes Cyanosis?: No Blood Pressure: 131/80 Pulse Rate: 100 Temperature: 97.7 F Mental Status: Alert & Oriented Pain level:: 5 Nausea and/or vomitting:: None Intake, IV Amount: 0
[2023-02-14 07:07] LABS: Alanine Aminotransferase 18 U/L (12-78); Albumin/Globulin Ratio 1.3 (1.1-1.8); Alkaline Phosphatase 42 U/L (38-126); Anion Gap 8.4 mEq/L (5-15); Aspartate Amino Transferase 24 U/L (17-59); Bilirubin,Total 0.5 mg/dl (0.2-1.3); Blood Urea Nitrogen 17 mg/dl (9-20); Carbon Dioxide 25 mmol/L (22.0-30.0); Creatinine Clearance Estimated 88 mL/min (50-200); Estimated Glomerular Filt Rate 74 ml/min (>60); GFR (African American) 90 ML/MIN (>60); Globulin 2.3 g/dL (1.3-3.2); Glucose 115 mg/dl (74-100); Hemoglobin 13.4 g/dL (14.1-18.0); Total Protein,Serum 5.3 g/dl (6.3-8.2)
--- NOTE | 2023-02-14 07:07 | P.PN_ITS ---
Subjective Narrative: Patient actually states that he feels somewhat better. Some soreness when coughing or hiccuping. Exam Data for Last 24 hours Vital signs and Labs for Last 24 Hours: Temp Pulse Resp BP Pulse Ox 98.6 F 103 H 18 117/71 90 L 02/14/23 06:00 02/14/23 06:00 02/14/23 06:00 02/14/23 06:00 02/14/23 06:00 Laboratory Results - last 24 hr 02/13/23 07:08: WBC 6.3, RBC 5.33, Hgb 15.4, Hct 48.4, MCV 90.8, MCH 29.0, MCHC 31.9, RDW 13.8, Plt Count 263, MPV 7.3 L, Neut % (Auto) 75.3, Lymph % (Auto) 16.7, [place] % (Auto) 7.4, Eos % (Auto) 0.1, Baso % (Auto) 0.4, Neut # (Auto) 4.7, Lymph # (Auto) 1.1, [place] # (Auto) 0.5, Eos # (Auto) 0.0, Baso # (Auto) 0.0 02/13/23 07:08: Sodium 135 L, Potassium 3.6, Chloride 102, Carbon Dioxide 25, Anion Gap 11.6, BUN 17, Creatinine 0.80, Estimated Creat Clear 85, Estimated GFR 96, Est GFR ( Amer) 116, Glucose 111 H, Calcium 7.9 L, Magnesium 2.3, Total Bilirubin 0.6, AST 28 D, ALT 26 D, Alkaline Phosphatase 57, Total Protein 6.4, Albumin 4.0, Globulin 2.4, Albumin/Globulin Ratio 1.7 02/13/23 12:15: Urine Color Yellow, Urine Appearance Clear, Urine pH 5.5, Ur Specific [place] >= 1.030, Urine Protein 2+, Urine Glucose (UA) Negative, Urine Ketones 2+, Urine Blood Negative, Urine Nitrate Negative, Urine Bilirubin Negative, Urine Urobilinogen 0.2, Ur Leukocyte Esterase Negative, Urine RBC None, Urine WBC None, Ur Squamous Epith Cells Occasional, Urine Bacteria None, Hyaline Casts Occ 02/13/23 17:50: Sodium 138, Potassium 3.8, Chloride 104, Carbon Dioxide 26, Anion Gap 11.8, BUN 18, Creatinine 0.90, Estimated Creat Clear 85, Estimated GFR 84, Est GFR ( Amer) 101, Glucose 124 H, Calcium 7.5 L 02/14/23 06:30: Sodium 138, Potassium 3.4 L, Chloride 108 H 02/14/23 06:30: WBC 4.8, RBC 4.44 L, Hgb 13.4 L D, Hct 40.8 L, MCV 92.0, MCH 30.2, MCHC 32.9, RDW 14.0, Plt Count 285, MPV 7.3 L, Neut % (Auto) 74.4, Lymph % (Auto) 15.0, [place] % (Auto) 10.0 H, Eos % (Auto) 0.1, Baso % (Auto) 0.4, Neut # (Auto) 3.6, Lymph # (Auto) 0.7, [place] # (Auto) 0.5, Eos # (Auto) 0.0, Baso # (Auto) 0.0 I & O for Last 24 hours: Intake & Output 02/11/23 02/12/23 02/13/23 02/14/23 11:59 11:59 11:59 11:59 Intake Total 1000 / 1000 2795 / 2795 3745 / 3745 Output Total 0 / 0 1011 / 1011 800 / 800 Balance 1000 / 1000 1784 / 1784 2945 / 2945 Weight 190 lb 1.6 oz 189 lb 3.2 oz 196 lb 1 oz *Routine Abdominal Exam Comments: Some serosanguineous drainage on the dressing Progress Note: A&P Assessment and plan (1) Bowel obstruction: Status: Acute Assessment and plan: PHYLICIA Sanderson. Patient may have ice chips and chewing gum. (2) Hypertension: Status: Acute (3) Hyperlipidemia: Status: Acute
--- NOTE | 2023-02-14 07:07 | EXP.ACUTE.PN ---
Subjective *Date: 02/15/23 *Time: 06:06 Medical Exam Vital signs and Labs for Last 24 Hours: Vital Signs Temp Pulse Pulse Resp BP BP Pulse Ox 02/14/23 06:00 98.6 F 103 H 18 117/71 90 L 02/14/23 04:00 99.9 F H 107 H 18 124/82 91 L 02/14/23 02:00 98.2 F 113 H 18 115/81 90 L 02/14/23 01:58 98.2 F 113 H 18 115/81 91 L 02/14/23 00:00 98.2 F 121 H 18 125/71 92 L 02/13/23 20:00 124 H 16 130/89 92 L 02/14/23 00:00 98.2 F 121 H 18 125/71 90 L 02/13/23 20:00 119 H 02/13/23 21:15 99.6 F 125 H 16 140/89 93 L 02/13/23 20:15 124 H 16 130/89 92 L 02/13/23 19:15 98.0 F 119 H 18 122/80 91 L 02/13/23 18:15 97.9 F 110 H 16 140/91 H 93 L 02/13/23 17:15 107 H 18 151/86 H 92 L 02/13/23 16:42 98.0 F 105 H 18 139/89 91 L 02/13/23 16:15 97.4 F L 104 H 16 142/93 H 92 L 02/13/23 15:45 98.8 F 102 H 18 127/87 96 02/13/23 15:15 104 H 18 136/93 H 96 02/13/23 15:03 97.5 F L 101 H 20 145/90 H 95 02/13/23 14:45 102 H 16 130/87 93 L 02/13/23 14:30 102 H 16 119/94 H 94 L 02/13/23 14:25 100 H 17 131/80 94 L 02/13/23 14:05 98 H 17 132/82 94 L 02/13/23 13:55 97 H 17 126/80 91 L 02/13/23 13:45 97.7 F 87 17 126/76 90 L 02/13/23 08:00 98.6 F 91 H 16 149/83 H 95 02/13/23 13:52 97.7 F 94 H 16 125/77 Intake and Output 02/13/23 02/14/23 02/14/23 19:59 03:59 11:59 Intake Total 2380 / 3745 200 / 3745 1165 / 3745 Output Total 800 / 800 Balance 2380 / 2945 200 / 2945 365 / 2945 Intake: Intake, Oral Amount 0 / 0 Intake, Total IV Amount 2380 / 3745 200 / 3745 1165 / 3745 0.9 % Sodium Chloride 1000ML 1, 580 / 1745 1165 / 1745 000 ml @ 100 mls/hr IV .Q10H [facility] Rx#:[id number] Ampicillin/Sulbactam 3 gm In 0. 200 / 200 9 % Sodium Chloride 100 ml @ 200 mls/hr IV Q8H [facility] Rx#: [id number] Output: Output, Urine Amount 800 / 800 Other: Number of Unmeasured Voids 0 Weight 196 lb 1 oz Patient Weight 02/14/23 11:59 Weight 196 lb 1 oz Laboratory Results - last 24 hr 02/13/23 07:08: WBC 6.3, RBC 5.33, Hgb 15.4, Hct 48.4, MCV 90.8, MCH 29.0, MCHC 31.9, RDW 13.8, Plt Count 263, MPV 7.3 L, Neut % (Auto) 75.3, Lymph % (Auto) 16.7, [place] % (Auto) 7.4, Eos % (Auto) 0.1, Baso % (Auto) 0.4, Neut # (Auto) 4.7, Lymph # (Auto) 1.1, [place] # (Auto) 0.5, Eos # (Auto) 0.0, Baso # (Auto) 0.0 02/13/23 07:08: Sodium 135 L, Potassium 3.6, Chloride 102, Carbon Dioxide 25, Anion Gap 11.6, BUN 17, Creatinine 0.80, Estimated Creat Clear 85, Estimated GFR 96, Est GFR ( Amer) 116, Glucose 111 H, Calcium 7.9 L, Magnesium 2.3, Total Bilirubin 0.6, AST 28 D, ALT 26 D, Alkaline Phosphatase 57, Total Protein 6.4, Albumin 4.0, Globulin 2.4, Albumin/Globulin Ratio 1.7 02/13/23 12:15: Urine Color Yellow, Urine Appearance Clear, Urine pH 5.5, Ur Specific [place] >= 1.030, Urine Protein 2+, Urine Glucose (UA) Negative, Urine Ketones 2+, Urine Blood Negative, Urine Nitrate Negative, Urine Bilirubin Negative, Urine Urobilinogen 0.2, Ur Leukocyte Esterase Negative, Urine RBC None, Urine WBC None, Ur Squamous Epith Cells Occasional, Urine Bacteria None, Hyaline Casts Occ 02/13/23 17:50: Sodium 138, Potassium 3.8, Chloride 104, Carbon Dioxide 26, Anion Gap 11.8, BUN 18, Creatinine 0.90, Estimated Creat Clear 85, Estimated GFR 84, Est GFR ( Amer) 101, Glucose 124 H, Calcium 7.5 L 02/14/23 06:30: Sodium 138, Potassium 3.4 L, Chloride 108 H I & O for Labs for Last 24 Hours: Intake & Output 02/11/23 02/12/23 02/13/23 02/14/23 11:59 11:59 11:59 11:59 Intake Total 1000 / 999 2795 / 2795 3745 / 3745 Output Total 0 / 0 1011 / 1011 800 / 800 Balance 1000 / 999 1784 / 1784 2945 / 2945 Weight 190 lb 1.6 oz 189 lb 3.2 oz 196 lb 1 oz
[2023-02-14 07:08] LABS: Calcium 7.1 mg/dl (8.4-10.2)
[2023-02-14 07:23] LABS: Magnesium 2.1 mg/dl (1.6-2.3); Phosphorous 2.9 mg/dl (2.5-4.5)
--- NOTE | 2023-02-14 07:25 | EXP.ACUTE.PN ---
Subjective *Date: 02/14/23 *Time: 07:25 Interval history: Mild abdominal soreness. Sore throat. Feeling well. Wants to get out of bed Medical Exam Vital signs and Labs for Last 24 Hours: Vital Signs Temp Pulse Pulse Resp BP BP Pulse Ox 02/14/23 06:00 98.6 F 103 H 18 117/71 90 L 02/14/23 04:00 99.9 F H 107 H 18 124/82 91 L 02/14/23 02:00 98.2 F 113 H 18 115/81 90 L 02/14/23 01:58 98.2 F 113 H 18 115/81 91 L 02/14/23 00:00 98.2 F 121 H 18 125/71 92 L 02/13/23 20:00 124 H 16 130/89 92 L 02/14/23 00:00 98.2 F 121 H 18 125/71 90 L 02/13/23 20:00 119 H 02/13/23 21:15 99.6 F 125 H 16 140/89 93 L 02/13/23 20:15 124 H 16 130/89 92 L 02/13/23 19:15 98.0 F 119 H 18 122/80 91 L 02/13/23 18:15 97.9 F 110 H 16 140/91 H 93 L 02/13/23 17:15 107 H 18 151/86 H 92 L 02/13/23 16:42 98.0 F 105 H 18 139/89 91 L 02/13/23 16:15 97.4 F L 104 H 16 142/93 H 92 L 02/13/23 15:45 98.8 F 102 H 18 127/87 96 02/13/23 15:15 104 H 18 136/93 H 96 02/13/23 15:03 97.5 F L 101 H 20 145/90 H 95 02/13/23 14:45 102 H 16 130/87 93 L 02/13/23 14:30 102 H 16 119/94 H 94 L 02/13/23 14:25 100 H 17 131/80 94 L 02/13/23 14:05 98 H 17 132/82 94 L 02/13/23 13:55 97 H 17 126/80 91 L 02/13/23 13:45 97.7 F 87 17 126/76 90 L 02/13/23 08:00 98.6 F 91 H 16 149/83 H 95 02/14/23 07:07 97.7 F 100 H 131/80 02/13/23 13:52 97.7 F 94 H 16 125/77 Intake and Output 02/13/23 02/13/23 02/14/23 15:59 23:59 07:59 Intake Total 1800 / 3620 580 / 3620 1365 / 1365 Output Total 800 / 800 Balance 1800 / 3510 580 / 3510 565 / 565 Intake: Intake, Oral Amount 0 / 0 0 / 0 Intake, Total IV Amount 1800 / 3620 580 / 3620 1365 / 1365 0.9 % Sodium Chloride 1000ML 1, 580 / 1620 1165 / 1165 000 ml @ 100 mls/hr IV .Q10H [facility] Rx#:[id number] Ampicillin/Sulbactam 3 gm In 0. 200 / 200 9 % Sodium Chloride 100 ml @ 200 mls/hr IV Q8H [facility] Rx#: [id number] Output: Output, Urine Amount 800 / 800 Other: Number of Unmeasured Voids 0 Weight 88.932 kg Patient Weight 02/14/23 23:59 Weight 88.932 kg Laboratory Results - last 24 hr 02/13/23 07:08: WBC 6.3, RBC 5.33, Hgb 15.4, Hct 48.4, MCV 90.8, MCH 29.0, MCHC 31.9, RDW 13.8, Plt Count 263, MPV 7.3 L, Neut % (Auto) 75.3, Lymph % (Auto) 16.7, [place] % (Auto) 7.4, Eos % (Auto) 0.1, Baso % (Auto) 0.4, Neut # (Auto) 4.7, Lymph # (Auto) 1.1, [place] # (Auto) 0.5, Eos # (Auto) 0.0, Baso # (Auto) 0.0 02/13/23 07:08: Sodium 135 L, Potassium 3.6, Chloride 102, Carbon Dioxide 25, Anion Gap 11.6, BUN 17, Creatinine 0.80, Estimated Creat Clear 85, Estimated GFR 96, Est GFR ( Amer) 116, Glucose 111 H, Calcium 7.9 L, Magnesium 2.3, Total Bilirubin 0.6, AST 28 D, ALT 26 D, Alkaline Phosphatase 57, Total Protein 6.4, Albumin 4.0, Globulin 2.4, Albumin/Globulin Ratio 1.7 02/13/23 12:15: Urine Color Yellow, Urine Appearance Clear, Urine pH 5.5, Ur Specific [place] >= 1.030, Urine Protein 2+, Urine Glucose (UA) Negative, Urine Ketones 2+, Urine Blood Negative, Urine Nitrate Negative, Urine Bilirubin Negative, Urine Urobilinogen 0.2, Ur Leukocyte Esterase Negative, Urine RBC None, Urine WBC None, Ur Squamous Epith Cells Occasional, Urine Bacteria None, Hyaline Casts Occ 02/13/23 17:50: Sodium 138, Potassium 3.8, Chloride 104, Carbon Dioxide 26, Anion Gap 11.8, BUN 18, Creatinine 0.90, Estimated Creat Clear 85, Estimated GFR 84, Est GFR ( Amer) 101, Glucose 124 H, Calcium 7.5 L 02/14/23 06:30: Sodium 138, Potassium 3.4 L, Chloride 108 H, Carbon Dioxide 25, Anion Gap 8.4, BUN 17, Creatinine 1.00, Estimated Creat Clear 88, Estimated GFR 74, Est GFR ( Amer) 90, Glucose 115 H, Calcium 7.1 L, Total Bilirubin 0.5, AST 24, ALT 18 D, Alkaline Phosphatase 42, Total Protein 5.3 L, Albumin 3.0 L D, Globulin 2.3,
--- NOTE | 2023-02-14 14:18 | DIET.NUTRFU ---
Patient has been NPO for 3 days since admit on 02/11. Patient is getting some sips of water and chewing gum. Continues to have output via NG tube, green in color today. Upon visit he denies any N/V or abdominal discomfort. No gas yet either. Reviewed diet progression when medically ready. Practices a regular diet at home, 3 meals/day
--- NOTE | 2023-02-14 16:01 | PC.NURSE ---
A&OX4. TOLERATING RA WELL. PT HAS BEEN RESTING IN BED MAJORITY OF SHIFT. HAS GOTTEN UP X1 THUS FAR TO STAND, STRETCH, AND USE URINAL. X2 ASSIST, TOLERATED VERY WELL. NG PRESENT TO R VINI, 67CM , DRAINING LIGHT GREEN BILE. F/C D/C THIS SHIFT, PT TOLERATED WELL AND HAS HAD ADEQUATE U/O SINCE. PT PAIN HAS BEEN CONTROLLED BY MORPHINE BRANCH BILLING PAYROLL CLERK PUMP. PT CHEWING GUM AND HAS ICE AT BEDSIDE. NO NEEDS OR C/O NOTED AT THIS TIME, VSS.
--- NOTE | 2023-02-14 18:42 | PC.NURSE ---
20.2MG OF MORPHINE CLEARED FROM EYE CARE PROFESSIONAL PUMP AT THIS TIME.
[2023-02-15] VITALS (9 sets, daily range): BP systolic 131–152; BP diastolic 75–94; PULSE 76–91; RESP 17–20; TEMP 36.5–37.3; O2SAT 90–94; BMI 29.7
--- NOTE | 2023-02-15 06:07 | P.PN_ITS ---
Subjective Patient reports: no new complaints Narrative: Patient up to restroom feeling the urge to have a bowel movement but would not result. Getting ready to get in the shower. We 150 cc out of nasogastric tube overnight. Exam Data for Last 24 hours Vital signs and Labs for Last 24 Hours: Temp Pulse Resp BP Pulse Ox 98.5 F 89 18 137/83 93 L 02/15/23 04:00 02/15/23 04:00 02/15/23 04:00 02/15/23 04:00 02/15/23 04:00 Laboratory Results - last 24 hr 02/14/23 06:30: Sodium 138, Potassium 3.4 L, Chloride 108 H, Carbon Dioxide 25, Anion Gap 8.4, BUN 17, Creatinine 1.00, Estimated Creat Clear 88, Estimated GFR 74, Est GFR ( Amer) 90, Glucose 115 H, Calcium 7.1 L, Total Bilirubin 0.5, AST 24, ALT 18 D, Alkaline Phosphatase 42, Total Protein 5.3 L, Albumin 3.0 L D, Globulin 2.3, Albumin/Globulin Ratio 1.3 02/14/23 06:30: WBC 4.8, RBC 4.44 L, Hgb 13.4 L D, Hct 40.8 L, MCV 92.0, MCH 30.2, MCHC 32.9, RDW 14.0, Plt Count 285, MPV 7.3 L, Neut % (Auto) 74.4, Lymph % (Auto) 15.0, [place] % (Auto) 10.0 H, Eos % (Auto) 0.1, Baso % (Auto) 0.4, Neut # (Auto) 3.6, Lymph # (Auto) 0.7, [place] # (Auto) 0.5, Eos # (Auto) 0.0, Baso # (Auto) 0.0 02/14/23 06:30: Phosphorus 2.9, Magnesium 2.1 I & O for Last 24 hours: Intake & Output 02/12/23 02/13/23 02/14/23 02/15/23 11:59 11:59 11:59 11:59 Intake Total 1000 / 1000 2795 / 2795 3745 / 3745 1196 / 1196 Output Total 0 / 0 1011 / 1011 2150 / 2150 1150 / 1150 Balance 1000 / 1000 1784 / 1784 1595 / 1595 46 / 46 Weight 190 lb 1.6 oz 189 lb 3.2 oz 196 lb 1 oz 198 lb 5 oz *Routine Abdominal Exam Abdominal: Present soft Progress Note: A&P Assessment and plan (1) Bowel obstruction: Status: Acute Assessment and plan: Once passing gas with decreased nasogastric output may be able to remove NG tube. (2) Hypertension: Status: Acute (3) Hyperlipidemia: Status: Acute
--- NOTE | 2023-02-15 06:39 | PC.NURSE ---
pt. stated NG tube fell out in shower. bowel sounds are present, pt. reported that he has not passed gas or had a bowel movement, notified Dr Altamirano, Dr Altamirano said to leave it out for now.
--- NOTE | 2023-02-15 07:18 | PC.NURSE ---
pt using production support specialist for pain. 15 used this shift.
[2023-02-15 07:41] LABS: Alanine Aminotransferase 17 U/L (12-78); Albumin Level 3.2 g/dl (3.5-5.0); Albumin/Globulin Ratio 1.5 (1.1-1.8); Alkaline Phosphatase 48 U/L (38-126); Anion Gap 11.3 mEq/L (5-15); Aspartate Amino Transferase 26 U/L (17-59); Bilirubin,Total 0.7 mg/dl (0.2-1.3); Blood Urea Nitrogen 13 mg/dl (9-20); Calcium 7.1 mg/dl (8.4-10.2); Carbon Dioxide 25 mmol/L (22.0-30.0); Chloride 105 mmol/L (98-107); Creatinine Clearance Estimated 89 mL/min (50-200); Estimated Glomerular Filt Rate 96 ml/min (>60); GFR (African American) 116 ML/MIN (>60); Globulin 2.2 g/dL (1.3-3.2); Glucose 86 mg/dl (74-100); Potassium 3.3 mmoL/L (3.5-5.1); Sodium 138 mmol/L (136-145); Total Protein,Serum 5.4 g/dl (6.3-8.2)
--- NOTE | 2023-02-15 11:54 | EXP.ACUTE.PN ---
Subjective *Date: 02/15/23 *Time: 11:54 Interval history: No issues feeling better pain controlled ambulating Medical Exam Vital signs and Labs for Last 24 Hours: Vital Signs Temp Pulse Resp BP Pulse Ox 02/15/23 10:00 98.6 F 85 18 146/85 H 91 L 02/15/23 08:00 97.7 F 91 H 18 139/85 90 L 02/15/23 06:00 98.5 F 86 18 145/85 H 02/15/23 04:00 98.5 F 89 18 137/83 93 L 02/15/23 02:00 98.2 F 76 18 140/86 93 L 02/15/23 00:00 98.2 F 86 18 134/83 94 L 02/14/23 22:00 98.2 F 87 18 126/80 92 L 02/14/23 20:00 98.2 F 92 H 18 134/81 91 L 02/14/23 18:00 98.5 F 93 H 17 128/85 92 L 02/14/23 16:00 98.7 F 94 H 18 136/70 91 L 02/14/23 14:52 97.6 F 96 H 18 124/80 91 L 02/14/23 14:00 98.2 F 96 H 18 137/93 H 91 L 02/14/23 12:00 99.0 F 95 H 18 141/75 H 92 L Intake and Output 02/14/23 02/15/23 02/15/23 23:59 07:59 15:59 Intake Total 1196 / 2561 Output Total 650 / 3050 350 / 350 Balance 546 / -489 -350 / -350 Intake: Intake, Total IV Amount 1196 / 2561 0.9 % Sodium Chloride 1000ML 1, 1096 / 2261 000 ml @ 100 mls/hr IV .Q10H [facility] Rx#:[id number] Ampicillin/Sulbactam 3 gm In 0. 100 / 300 9 % Sodium Chloride 100 ml @ 200 mls/hr IV Q8H [facility] Rx#: [id number] Output: Output, Urine Amount 300 / 1850 350 / 350 Output, Gastric Drainage Amount 350 / 1200 Right Nare 350 / 1200 Other: Number of Unmeasured Voids 0 Weight 89.953 kg Patient Weight 02/15/23 23:59 Weight 89.953 kg Laboratory Results - last 24 hr 02/15/23 07:14: Sodium 138, Potassium 3.3 L, Chloride 105, Carbon Dioxide 25, Anion Gap 11.3, BUN 13, Creatinine 0.80, Estimated Creat Clear 89, Estimated GFR 96, Est GFR ( Amer) 116 D, Glucose 86, Calcium 7.1 L, Total Bilirubin 0.7, AST 26, ALT 17, Alkaline Phosphatase 48, Total Protein 5.4 L, Albumin 3.2 L, Globulin 2.2, Albumin/Globulin Ratio 1.5 I & O for Labs for Last 24 Hours: Intake & Output 02/12/23 02/13/23 02/14/23 02/15/23 23:59 23:59 23:59 23:59 Intake Total 1755 / 1755 3420 / 3620 2561 / 2561 Output Total 901 / 901 110 / 110 3050 / 3050 350 / 350 Balance 854 / 854 3310 / 3510 -489 / -489 -350 / -350 Weight 86.2 kg 85.82 kg 88.932 kg 89.953 kg Constitutional: Present mild distress Head: Present atraumatic and normocephalic ENT: Present normal exam Neck: Present normal inspection Respiratory: Present normal respiratory effort; Absent accessory muscle use, rhonchi, wheezes or crackles Cardiac: Present Reg Rate and Rhythm GI: Present soft and tenderness (Diffuse abdomen pain, absent bowel sounds); Absent distention or normal bowel sounds Comments:: Surgical incision Extremities: Present normal inspection and full ROM Skin: Present intact; Absent erythema Neuro: Present Cranial Nerve 2-12 Intact, Grossly Intact, alert, awake, oriented x 3 and moves all extremities Assessment and Plan *Assessment and plan (1) Bowel obstruction: Status: Acute Category: Medical Code(s): K56.609 - Unspecified intestinal obstruction, unspecified as to partial versus complete obstruction (2) Hypertension: Status: Acute Category: Medical Code(s): I10 - Essential (primary) hypertension (3) Hyperlipidemia: Status: Acute Category: Medical Code(s): E78.5 - Hyperlipidemia, unspecified Plan 67-year-old male with bowel obstruction. Admitted to medicine for further management. NG placed this morning. Improved discomfort. Surgery consulted, appreciate their recommendations. 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
--- NOTE | 2023-02-15 12:50 | PC.NURSE ---
tech note; notified nurse of high blood pressure for 1200 vital signs Michelle Dowd, SRNA
--- NOTE | 2023-02-15 13:54 | PC.NURSE ---
Addendum entered by Lexus Franco RN 02/15/23 14:10: 8.2 MG CLEARED FROM PUMP THIS SHIFT Original Note: HAVE D/C MORPHINE TRANSPORT CONDUCTOR PUMP AT THIS TIME. GAVE PT PO PAIN MEDICATION PER JAN. TOLERATING WELL, IS UP AMBULATING IN ROOM AT THIS TIME
--- NOTE | 2023-02-15 14:22 | PC.NURSE ---
tech note; pt walked length of hallway twice Michelle Dowd, SRNA
--- NOTE | 2023-02-15 16:29 | PC.NURSE ---
A&OX4. TOLERATING RA WELL. PT HAS BEEN UP AMBULATING IN ROOM AND HALLWAY. HAS BEEN BURPING, BUT HAS NOT PASSED GAS OR HAD BOWEL MOVEMENT YET. PT HAS TOLERATED PAIN MANAGEMENT WELL. ICE CHIPS AT BEDSIDE. PT HAS HAD NO OTHER NEEDS OR C/O NOTED THUS FAR. VSS.
--- NOTE | 2023-02-15 16:45 | PC.NURSE ---
tech note; notified nurse of high blood pressure for 1600 vital signs. K Nile, SRNA
[2023-02-16] VITALS: BP 149/88; PULSE 86; RESP 17; TEMP 37.2; O2SAT 90
--- NOTE | 2023-02-16 00:27 | PC.NURSE ---
PT WAS ABLE TO HAVE A SMALL BROWN LOOSE BM AT THIS TIME
[2023-02-16 04:00] VITALS: BP 157/99; PULSE 79; RESP 17; TEMP 36.8; O2SAT 92; BMI 29.9
--- NOTE | 2023-02-16 04:31 | PC.NURSE ---
NO ACUTE CHANGES SINCE PREVIOUS ASSESSMENT. BOWEL SOUNDS ACTIVE. REMAINS ON ROOM AIR. PT HAS BEEN ABLE TO HAVE 2 SMALL BM'S THIS SHIFT. PAIN MEDS GIVEN X1 THIS SHIFT WITH ADEQUATE RELIEF. VSS.
[2023-02-16 07:18] VITALS: BP 140/73; PULSE 78; RESP 19; TEMP 37; O2SAT 93
--- NOTE | 2023-02-16 07:46 | PC.NURSE ---
pt reports having small bowel movements. denies any nausea or vomiting. states pain is manageable.
--- NOTE | 2023-02-16 08:29 | PC.NURSE ---
courtesy tech note; rounded on pt, assisted with emptying urinal and ambulation to the restroom. Ambulation tolerated well with minimum assistance. call light within reach, no further requests at this time. Michelle Dowd, SRNA
[2023-02-16 09:07] LABS: Basophils % 0.2 % (0.1-2.0); Eosinophils # 0.1 K/mm3 (0.0-0.4); Eosinophils % 1.3 % (0.1-12.0); Hematocrit 37.3 % (42.0-52.0); Hemoglobin 11.9 g/dL (14.1-18.0); Lymphocytes # 0.7 K/mm3 (0.7-4.5); Lymphocytes % 17.3 % (10-50); Mean Corpuscular HGB Conc 31.9 g/dL (31.8-35.4); Mean Corpuscular Hemoglobin 28.9 pg (27.0-31.2); Mean Corpuscular Volume 90.4 fl (80-94); Mean Platelet Volume 8.4 fl (7.4-10.4); Monocytes # 0.3 K/mm3 (0.1-1.0); Monocytes % 8.2 % (1.7-9.3); Platelet Count 259 K/mm3 (142-424); Red Blood Count 4.12 M/mm3 (4.60-6.20); Red Cell Distribution Width 13.5 % (11.5-17.5); White Blood Count 4.1 K/mm3 (4.8-10.8)
[2023-02-16 09:16] LABS: Chloride 107 mmol/L (98-107); Potassium 3.5 mmoL/L (3.5-5.1); Sodium 135 mmol/L (136-145)
[2023-02-16 09:19] LABS: Alanine Aminotransferase 15 U/L (12-78); Albumin Level 2.9 g/dl (3.5-5.0); Albumin/Globulin Ratio 1.3 (1.1-1.8); Alkaline Phosphatase 47 U/L (38-126); Anion Gap 10.5 mEq/L (5-15); Aspartate Amino Transferase 25 U/L (17-59); Bilirubin,Total 0.6 mg/dl (0.2-1.3); Blood Urea Nitrogen 12 mg/dl (9-20); Calcium 7.3 mg/dl (8.4-10.2); Carbon Dioxide 21 mmol/L (22.0-30.0); Creatinine Clearance Estimated 88 mL/min (50-200); Estimated Glomerular Filt Rate 112 ml/min (>60); GFR (African American) 135 ML/MIN (>60); Globulin 2.3 g/dL (1.3-3.2); Glucose 84 mg/dl (74-100); Magnesium 2.4 mg/dl (1.6-2.3); Phosphorous 2.4 mg/dl (2.5-4.5); Total Protein,Serum 5.2 g/dl (6.3-8.2)
--- NOTE | 2023-02-16 10:17 | P.PN_ITS ---
Subjective Patient reports: no new complaints, feels better and bowel movement Narrative: He claims to have had quite a few bowel movements last night . He is complaining of hunger . Exam Data for Last 24 hours Vital signs and Labs for Last 24 Hours: Temp Pulse Resp BP Pulse Ox 98.6 F 78 19 140/73 93 L 02/16/23 07:18 02/16/23 07:18 02/16/23 07:18 02/16/23 07:18 02/16/23 07:18 Laboratory Results - last 24 hr 02/16/23 08:52: WBC 4.1 L, RBC 4.12 L, Hgb 11.9 L, Hct 37.3 L, MCV 90.4, MCH 28.9, MCHC 31.9, RDW 13.5, Plt Count 259, MPV 8.4, Neut % (Auto) 73.0, Lymph % (Auto) 17.3, [place] % (Auto) 8.2, Eos % (Auto) 1.3, Baso % (Auto) 0.2, Neut # ( Auto) 3.0, Lymph # (Auto) 0.7, [place] # (Auto) 0.3, Eos # (Auto) 0.1, Baso # (Auto) 0.0 02/16/23 08:52: Sodium 135 L, Potassium 3.5, Chloride 107, Carbon Dioxide 21 L, Anion Gap 10.5, BUN 12, Creatinine 0.70, Estimated Creat Clear 88, Estimated GFR 112, Est GFR ( Amer) 135, Glucose 84, Calcium 7.3 L, Phosphorus 2.4 L, Magnesium 2.4 H D, Total Bilirubin 0.6, AST 25, ALT 15, Alkaline Phosphatase 47, Total Protein 5.2 L, Albumin 2.9 L, Globulin 2.3, Albumin/Globulin Ratio 1.3 I & O for Last 24 hours: Intake & Output 02/13/23 02/14/23 02/15/23 02/16/23 11:59 11:59 11:59 11:59 Intake Total 2795 / 2795 3745 / 3745 1196 / 1196 2366 / 2366 Output Total 1011 / 1011 2150 / 2150 1250 / 1250 975 / 975 Balance 1784 / 1784 1595 / 1595 -54 / -54 1391 / 1391 Weight 189 lb 3.2 oz 196 lb 1 oz 198 lb 5 oz 197 lb 3.2 oz Constitutional Constitutional: no acute distress *Routine Respiratory Exam Respiratory: Absent respiratory distress *Routine Cardiovascular Exam Cardiovascular: Absent tachycardia *Routine Abdominal Exam Abdominal: Present soft, tenderness and other (Incision healing without sign of infection) Comments: Appropriate postoperative tenderness Progress Note: A&P Assessment and plan (1) Bowel obstruction: Status: Acute Assessment and plan: Overall, doing well postoperative day 3 status post exploratory laparotomy with lysis of adhesions. Full liquid diet ordered (continue slowly advance as tolerated)
[2023-02-16 10:58] VITALS: BP 138/78; PULSE 80; RESP 18; TEMP 36.9; O2SAT 94
--- NOTE | 2023-02-16 13:00 | EXP.ACUTE.PN ---
Subjective *Date: 02/16/23 *Time: 13:00 Interval history: Patient feeling better this morning. No abdominal pain, nausea, vomiting. Tolerating clear liquid diet. Having diarrhea and passing gas. Surgery to advance diet. Afebrile. Normotensive Medical Exam Vital signs and Labs for Last 24 Hours: Vital Signs Temp Pulse Resp BP Pulse Ox 02/16/23 10:58 98.4 F 80 18 138/78 94 L 02/16/23 07:18 98.6 F 78 19 140/73 93 L 02/16/23 04:00 98.3 F 79 17 157/99 H 92 L 02/16/23 00:00 98.9 F 86 17 149/88 H 90 L 02/15/23 20:00 98.3 F 87 17 147/75 H 92 L 02/15/23 16:00 99.2 F 89 20 152/94 H 92 L Intake and Output 02/15/23 02/16/23 02/16/23 23:59 07:59 15:59 Intake Total 2366 / 2366 0 / 2366 Output Total 100 / 1025 300 / 500 200 / 500 Balance -100 / -1025 2066 / 1866 -200 / 1866 Intake: Intake, Oral Amount 0 / 0 0 / 0 Intake, Total IV Amount 2366 / 2366 0.9 % Sodium Chloride 1000ML 1, 2366 / 2366 000 ml @ 100 mls/hr IV .Q10H [facility] Rx#:[id number] Output: Output, Urine Amount 100 / 1025 300 / 500 200 / 500 Other: Number of Unmeasured Voids 1 1 1 Number of Bowel Movements 2 2 Weight 89.448 kg Patient Weight 02/16/23 23:59 Weight 89.448 kg Laboratory Results - last 24 hr 02/16/23 08:52: WBC 4.1 L, RBC 4.12 L, Hgb 11.9 L, Hct 37.3 L, MCV 90.4, MCH 28.9, MCHC 31.9, RDW 13.5, Plt Count 259, MPV 8.4, Neut % (Auto) 73.0, Lymph % (Auto) 17.3, [place] % (Auto) 8.2, Eos % (Auto) 1.3, Baso % (Auto) 0.2, Neut # (Auto) 3.0, Lymph # (Auto) 0.7, [place] # (Auto) 0.3, Eos # (Auto) 0.1, Baso # (Auto) 0.0 02/16/23 08:52: Sodium 135 L, Potassium 3.5, Chloride 107, Carbon Dioxide 21 L, Anion Gap 10.5, BUN 12, Creatinine 0.70, Estimated Creat Clear 88, Estimated GFR 112, Est GFR ( Amer) 135, Glucose 84, Calcium 7.3 L, Phosphorus 2.4 L, Magnesium 2.4 H D, Total Bilirubin 0.6, AST 25, ALT 15, Alkaline Phosphatase 47, Total Protein 5.2 L, Albumin 2.9 L, Globulin 2.3, Albumin/Globulin Ratio 1.3 I & O for Labs for Last 24 Hours: Intake & Output 02/13/23 02/14/23 02/15/23 02/16/23 23:59 23:59 23:59 23:59 Intake Total 3420 / 3620 2561 / 2561 2366 / 2366 Output Total 110 / 110 3050 / 3050 825 / 1025 500 / 500 Balance 3310 / 3510 -489 / -489 -825 / -1025 1866 / 1866 Weight 85.82 kg 88.932 kg 89.953 kg 89.448 kg Constitutional: Present mild distress Head: Present atraumatic and normocephalic ENT: Present normal exam Neck: Present normal inspection Respiratory: Present normal respiratory effort; Absent accessory muscle use, rhonchi, wheezes or crackles Cardiac: Present Reg Rate and Rhythm GI: Present soft, tenderness (iproving, actve boel sound) and normal bowel sounds; Absent distention Comments:: Surgical incision Extremities: Present normal inspection and full ROM Skin: Present intact; Absent erythema Neuro: Present Cranial Nerve 2-12 Intact, Grossly Intact, alert, awake, oriented x 3 and moves all extremities Assessment and Plan *Assessment and plan (1) Bowel obstruction: Status: Acute Category: Medical Code(s): K56.609 - Unspecified intestinal obstruction, unspecified as to partial versus complete obstruction (2) Hypertension: Status: Acute Category: Medical Code(s): I10 - Essential (primary) hypertension (3) Hyperlipidemia: Status: Acute Category: Medical Code(s): E78.5 - Hyperlipidemia, unspecified Plan 67-year-old male with bowel obstruction. Admitted to medicine for further management. NG placed this morning. Improved discomfort. Surgery consulted, appreciate their recommendations. Problems addressed as follows: SBO Status post laparotomy, having bowel movements. Advance diet to full liquid today per surgery Surgery consulted, appreciate their recommendations. Please with the progress of patient's abdomen. Advancing diet. No further indication for NG. Continue to hold on antibiotics oral pa
[2023-02-16 14:45] VITALS: BP 138/79; PULSE 83; RESP 18; TEMP 37.1; O2SAT 94
[2023-02-16 19:41] VITALS: BP 149/87; PULSE 75; RESP 20; TEMP 37.2; O2SAT 94
[2023-02-17] VITALS: BP 146/86; PULSE 82; RESP 16; TEMP 37.4; O2SAT 93
[2023-02-17 04:00] VITALS: BP 147/89; PULSE 88; RESP 16; TEMP 37.2; O2SAT 92; BMI 29.5
--- NOTE | 2023-02-17 06:36 | PC.NURSE ---
Midline incision with geena open to air with no sign of infection. Pt reports mild abdominal cramping, better than it was. Pt reports 1 small type 6-type 7, brown BM. Pt ambulates to bathroom independently. Denies nausea.
[2023-02-17 07:11] VITALS: BP 136/83; PULSE 88; RESP 18; TEMP 37.3; O2SAT 93
[2023-02-17 08:23] LABS: Basophils % 0.6 % (0.1-2.0); Eosinophils # 0.1 K/mm3 (0.0-0.4); Eosinophils % 1.6 % (0.1-12.0); Hematocrit 40.6 % (42.0-52.0); Lymphocytes # 0.9 K/mm3 (0.7-4.5); Lymphocytes % 16.5 % (10-50); Mean Corpuscular HGB Conc 32.5 g/dL (31.8-35.4); Mean Corpuscular Hemoglobin 29.1 pg (27.0-31.2); Mean Corpuscular Volume 89.6 fl (80-94); Mean Platelet Volume 7.7 fl (7.4-10.4); Monocytes # 0.4 K/mm3 (0.1-1.0); Monocytes % 6.8 % (1.7-9.3); Neutrophils # 4.1 K/mm3 (1.8-7.8); Neutrophils % 74.6 % (37.0-80.0); Platelet Count 303 K/mm3 (142-424); Red Blood Count 4.54 M/mm3 (4.60-6.20); Red Cell Distribution Width 13.4 % (11.5-17.5); White Blood Count 5.4 K/mm3 (4.8-10.8)
[2023-02-17 08:56] LABS: Chloride 104 mmol/L (98-107)
[2023-02-17 08:57] LABS: Potassium 3.2 mmoL/L (3.5-5.1); Sodium 134 mmol/L (136-145)
[2023-02-17 08:59] LABS: Alanine Aminotransferase 16 U/L (12-78); Aspartate Amino Transferase 27 U/L (17-59); Blood Urea Nitrogen 10 mg/dl (9-20); Creatinine Clearance Estimated 87 mL/min (50-200); Estimated Glomerular Filt Rate 112 ml/min (>60); GFR (African American) 135 ML/MIN (>60)
[2023-02-17 09:00] LABS: Albumin Level 3.2 g/dl (3.5-5.0); Albumin/Globulin Ratio 1.3 (1.1-1.8); Alkaline Phosphatase 53 U/L (38-126); Anion Gap 10.2 mEq/L (5-15); Bilirubin,Total 0.6 mg/dl (0.2-1.3); Calcium 7.8 mg/dl (8.4-10.2); Carbon Dioxide 23 mmol/L (22.0-30.0); Globulin 2.4 g/dL (1.3-3.2); Glucose 110 mg/dl (74-100); Phosphorous 2.5 mg/dl (2.5-4.5); Total Protein,Serum 5.6 g/dl (6.3-8.2)
[2023-02-17 09:11] LABS: Hemoglobin 13.2 g/dL (14.1-18.0)
--- NOTE | 2023-02-17 09:56 | P.PN_ITS ---
Subjective Patient reports: no new complaints, feels better and bowel movement Exam Data for Last 24 hours Vital signs and Labs for Last 24 Hours: Temp Pulse Resp BP Pulse Ox 99.2 F 88 18 136/83 93 L 02/17/23 07:11 02/17/23 07:11 02/17/23 07:11 02/17/23 07:11 02/17/23 07:11 Laboratory Results - last 24 hr 02/17/23 07:47: WBC 5.4 D, RBC 4.54 L, Hgb 13.2 L D, Hct 40.6 L, MCV 89.6, MCH 29.1, MCHC 32.5, RDW 13.4, Plt Count 303, MPV 7.7, Neut % (Auto) 74.6, Lymph % (Auto) 16.5, [place] % (Auto) 6.8, Eos % (Auto) 1.6, Baso % (Auto) 0.6, Neut # (Auto) 4.1, Lymph # (Auto) 0.9, [place] # (Auto) 0.4, Eos # (Auto) 0.1, Baso # (Auto) 0.0 02/17/23 07:47: Sodium 134 L, Potassium 3.2 L, Chloride 104, Carbon Dioxide 23, Anion Gap 10.2, BUN 10, Creatinine 0.70, Estimated Creat Clear 87, Estimated GFR 112, Est GFR ( Amer) 135, Glucose 110 H D, Calcium 7.8 L, Phosphorus 2.5, Total Bilirubin 0.6, AST 27, ALT 16, Alkaline Phosphatase 53, Total Protein 5.6 L, Albumin 3.2 L D, Globulin 2.4, Albumin/Globulin Ratio 1.3 I & O for Last 24 hours: Intake & Output 02/14/23 02/15/23 02/16/23 02/17/23 11:59 11:59 11:59 11:59 Intake Total 3745 / 3745 1196 / 1196 2366 / 2366 240 / 240 Output Total 2150 / 2150 1250 / 1250 975 / 975 400 / 400 Balance 1595 / 1595 -54 / -54 1391 / 1391 -160 / -160 Weight 196 lb 1 oz 198 lb 5 oz 197 lb 3.2 oz 194 lb 8 oz Constitutional Constitutional: no acute distress *Routine Respiratory Exam Respiratory: Absent respiratory distress *Routine Cardiovascular Exam Cardiovascular: Absent tachycardia *Routine Abdominal Exam Comments: Incision healing without sign of infection. Small amount of serous drainage n oted below the umbilicus. Progress Note: A&P Assessment and plan (1) Bowel obstruction: Status: Acute Assessment and plan: Overall, doing well status post exploratory laparotomy with lysis of adhesions. He is tolerating a full liquid diet and has had evidence of appropriate return of bowel function. Okay from surgical standpoint for discharge home with close outpatient follow- up. Remove one half of geena. Dry dressings as needed.
--- NOTE | 2023-02-17 09:59 | PC.NURSE ---
removed 7 geena and applied steri strips per MD order. Dry dressing applied to area just under the navel due to increased drainage. surgeon aware of what patients incision looks like.
--- NOTE | 2023-02-17 10:12 | EXP.DC.SUM ---
General Admission date:: 02/11/23 Discharge date: 02/17/23 HPI HPI HPI: Patient is a 67-year-old male from [place], [place]. He has a prior history of hypertension hyperlipidemia. No history of any previous abdominal surgeries. He presented to the emergency department with complaints of lower abdominal pain. This was described as severe in intensity. Dull and crampy in nature. He had onset after eating breakfast. Initially he was having some upper respiratory congestion and had taken some DayQuil. He then developed at this abdominal pain. He did have associated emesis and had diminished appetite. Bowel movement was normal on 02/10/2023 and he had small hard stool bowel movement on 02/11/2023. No prior similar history. Evaluation in the emergency department included CT scan which revealed findings of fluid-filled dilated segments of small bowel in the abdomen and pelvis with some edema. There was noted to be a transition point. Radiologist description describes mesentery partially twists around this location. This is most likely a high-grade bowel obstruction, possibly related to volvulus. Adhesions are also possible. There is also findings of severe sigmoid diverticulosis. Surgery was contacted. Arrangements were made for inpatient admission to hospitalist service with surgical consultation. Hospital Course Hospital Course Hospital Course: 67-year-old male with bowel obstruction.? Admitted to medicine for further management.? NG placed this morning.? Improved discomfort.? Surgery consulted, appreciate their recommendations.? Problems addressed as follows: SBO Patient presented with nausea and vomiting, signs of bowel obstruction on CT of abdomen. Surgery was consulted, appreciate their recommendations during admission. NG placed for decompression but patient had worsening symptoms. Taken to the OR for evaluation. Exploratory laparotomy with freeing of intestinal obstruction was performed. No sections were removed, all intestine deemed viable. Patient was closed, NG remained in place. Over the coming days patient's bowel function resumed as he was passing gas and having liquid stools. Able to advance his diet without difficulty. Tolerating soft diet on day of discharge. Patient did not have any signs of infection necessitating antibiotics. Plan for follow-up within the next week with surgery to monitor abdominal incision. HTN: Hold blood pressure meds during admission. Okay to resume at discharge. HLD: Held home medications during admission. Okay to resume after discharge Stable for discharge home. Patient has minimal cough as well that has developed. Responding to benzonatate. No concern for respiratory infection at this time. Close follow-up with surgery for further evaluation of abdomen in the coming week. Advance to usual diet Exam Data for Last 24 hours Vital signs and Labs for Last 24 Hours: Temp Pulse Resp BP Pulse Ox 99.2 F 88 18 136/83 93 L 02/17/23 07:11 02/17/23 07:11 02/17/23 07:11 02/17/23 07:11 02/17/23 07:11 Laboratory Results - last 24 hr 02/17/23 07:47: WBC 5.4 D, RBC 4.54 L, Hgb 13.2 L D, Hct 40.6 L, MCV 89.6, MCH 29.1, MCHC 32.5, RDW 13.4, Plt Count 303, MPV 7.7, Neut % (Auto) 74.6, Lymph % (Auto) 16.5, [place] % (Auto) 6.8, Eos % (Auto) 1.6, Baso % (Auto) 0.6, Neut # (Auto) 4.1, Lymph # (Auto) 0.9, [place] # (Auto) 0.4, Eos # (Auto) 0.1, Baso # (Auto) 0.0 02/17/23 07:47: Sodium 134 L, Potassium 3.2 L, Chloride 104, Carbon Dioxide 23, Anion Gap 10.2, BUN 10, Creatinine 0.70, Estimated Creat Clear 87, Estimated GFR 112, Est GFR ( Amer) 135, Glucose 110 H D, Calcium 7.8 L, Phosphorus 2.5, Total Bilirubin 0.6, AST 27, ALT 16, Alkaline Phosphatase 53, Total Protein 5.6 L, Albumin 3.2 L D, Globulin 2.4, Albumin/Globulin Ratio 1.3 I & O for Last 24 hours: Intake & Output 02/14/23 02/15/23 02/16/23 02/17/23 23:59 23:59 23:59 23:59 Intake Total 2561 / 2561 2366 / 2366 240 /
--- NOTE | 2023-02-18 15:25 | CARE MANAGER ---
Attempted post-discharge phone interview, no answer.
--- NOTE | 2023-02-19 13:32 | CARE MANAGER ---
Contacted patient related to hospital discharge. He states he is doing well. He denies questions or concerns. He was able to pick up attendant all medications. He has scheduled surgery follow up on at this weekend. JENNI Patel
== END 2023-02-17 11:19 | disposition home or self-care (01) | DRG 337 ==
LOC: ER 17:21 → 2ND 02-12 04:58
PROVIDERS: Nurse Practitioner Acute Care; Student in an Organized Health Care Education/Training Program; Surgery; Admitting Provider Internal Medicine Adolescent Medicine; Emergency Provider Emergency Medicine; PCP Emergency Medicine; Visit Provider Internal Medicine Adolescent Medicine
PROC: (CPT 49000; principal; 2023-02-13 11:30)
DX: K56.609 Unspecified intestinal obstruction, unspecified as to partial versus complete obstruction (principal); I10 Essential (primary) hypertension; E78.5 Hyperlipidemia, unspecified; Z79.899 Other long term (current) drug therapy; K56.601 Complete intestinal obstruction, unspecified as to cause; E83.51 Hypocalcemia
CPT/HCPCS: 36415; 74018; 74021; 74177; 74250; 80048; 80053; 81001; 83690; 83735; 84100; 85007; 85025; 99285; C9803; J2405; Q9967; U0003; U0005